=== PATIENT | male | born 1965 | race Caucasian/White ===

== ENCOUNTER 2018-03-01 16:59 | Inpatient (IN) | payer OTHER ==
[2018-03-01] MEDS ORDERED: SODIUM CHLORIDE 0.9% 1,000 ML IV STA (17:19)
[2018-03-01] MEDS ORDERED: LABETALOL 5 MG/ML VIAL MDV IVP STA (17:19)
[2018-03-01 17:55] LABS: Basophils # (A) 0.1 k/uL (0-0.2); Basophils % (A) 1 %; Eosinophils # (A) 0.2 k/uL (0-0.7); Eosinophils % (A) 2 %; HCT 45.6 % (39.0-53.0); HGB 15.8 gm/dL (13.0-17.5); Lymphocytes # (A) 2.1 k/uL (1.0-4.8); Lymphocytes % (A) 22 %; MCH 28.4 pg (25.0-35.0); MCHC 34.7 g/dL (31.0-37.0); MCV 81.8 fL (80.0-100.0); Mean Platelet Volume 7.4; Monocytes # (A) 0.4 k/uL (0-1.0); Monocytes % (A) 5 %; Neutrophils # (A) 6.6 k/uL (1.3-7.7); Neutrophils % (A) 69 %; Platelet Count 211 k/uL (150-450); RBC 5.58 m/uL (4.30-5.90); RDW 13.6 % (11.5-15.5); WBC 9.6 k/uL (3.8-10.6)
[2018-03-01 18:09] LABS: ALT 16 U/L (21-72); AST 24 U/L (17-59); Albumin 3.8 g/dL (3.5-5.0); Alkaline Phosphatase 66 U/L (38-126); Anion Gap 11 mmol/L; Blood Urea Nitrogen 13 mg/dL (9-20); Calcium 9.5 mg/dL (8.4-10.2); Carbon Dioxide 23 mmol/L (22-30); Chloride 99 mmol/L (98-107); Glucose 206 mg/dL (74-99); Partial Thromboplastin Time 22.4 sec (22.0-30.0); Potassium 5.5 mmol/L (3.5-5.1); Prothrombin Time 10.1 sec (9.0-12.0); Sodium 133 mmol/L (137-145); Total Bilirubin 0.7 mg/dL (0.2-1.3); Total Protein 6.4 g/dL (6.3-8.2)
[2018-03-01 18:24] LABS: Troponin I 0.043 ng/mL (0.000-0.034)
--- NOTE | 2018-03-01 18:25 | XR ---
EXAMINATION TYPE: XR chest 2V DATE OF EXAM: 03/01/2018 COMPARISON: NONE HISTORY: Chest pain and abnormal EKG TECHNIQUE: Frontal and lateral views of the chest are obtained. FINDINGS: There is no focal air space opacity, pleural effusion, or pneumothorax seen. The cardiac silhouette size is within normal limits. The osseous structures are intact. Minimal multilevel dege nerative changes of thoracic spine are noted. IMPRESSION: No acute cardiopulmonary process.
--- NOTE | 2018-03-01 18:29 | CT ---
EXAMINATION TYPE: CT brain wo con DATE OF EXAM: 03/01/2018 COMPARISON: NONE HISTORY: Patient complains of headache. Neurologic deficits. CT DLP: 794.2 mGycm. Automated Exposure Control for Dose Reduction was Utilized. TECHNIQUE: CT scan of the head is performed without contrast. FINDINGS: There is no acute intracranial hemorrhage, mass effect, or midline shift identified. Hypo attenuation within the left lateral shavonne may represent old lacunar injury. The linear cleft within th e right parietal lobe may represent congenital defect such as schizencephaly or old encephalomalacia from prior small branch vessel infarct as it is CSF attenuated appearing chronic. Ventricles and sulc i are within normal limits in size. The globes are intact and the visualized sinuses are clear. Mini mal calcific atheromatous changes are seen of the intracranial vasculature. IMPRESSION: 1. No acute intracranial hemorrhage, mass effect, or midline shift is seen. If clinical symptoms or n eurologic deficits persist MRI would BE recommended for further evaluation. 2. Multifocal areas of probable old injury.
[2018-03-01] MEDS ORDERED: NITROGLYCERIN SL TABS 0.4 MG TAB SUBLINGUAL PRN (20:10)
[2018-03-01] MEDS ORDERED: MORPHINE ORAL SOLN 10 MG/5 ML CUP PO PRN (20:10)
[2018-03-01] MEDS ORDERED: HEPARIN SODIUM,PORCINE 5,000 UNIT/ML 1 ML VIAL IV ONE (20:10)
--- NOTE | 2018-03-01 20:10 | ED ---
General Adult HPI - General Chief complaint: Recheck/Abnormal Lab/Rx Stated complaint: ekg change Time Seen by Provider: 03/01/18 17:19 Source: patient, EMS Mode of arrival: EMS Limitations: no limitations - History of Present Illness Initial comments: [age] years old male presents with the dizziness and lightheadedness he said he felt some pressure behind the eyes was seen in urgent care center and they noticed over the suspected some changes in the EKG the referred him to the ER on arrival his blood pressure was quite high there was greater than 200 systolic was complaining about the headache and blurred vision denies any chest pain no shortness of breath he has no history of heart disease or PE or DVT he stated he does not smoke and family history is unremarkable his mom and dad has no history of heart disease and denies abdominal pain no frequency urgency dysuria dysuria no symptoms of TIA or CVA - Related Data Home Medications Medication Instructions Recorded Confirmed Atenolol [Tenormin] 50 mg PO DAILY 03/01/18 03/01/18 guanFACINE [Tenex] 1 mg PO DAILY 03/01/18 03/01/18 Allergies Allergy/AdvReac Type Severity Reaction Status Date / Time No Known Allergies Allergy Verified 03/01/18 18:52 Review of Systems ROS Statement: Those systems with pertinent positive or pertinent negative responses have been documented in the HPI. ROS Other: All systems not noted in ROS Statement are negative. Past Medical History Past Medical History: Hypertension History of Any Multi-Drug Resistant Organisms: None Reported Past Surgical History: Tonsillectomy Past Psychological History: No Psychological Hx Reported Smoking Status: Never smoker Past Alcohol Use History: Occasional Past Drug Use History: None Reported General Exam - General Exam Comments Initial Comments: General: The patient is awake and alert, in no distress, and does not appear acutely ill. Skin: Skin is warm and dry and no rashes or lesions are noted. Eye: Pupils are equal, round and reactive to light, extra-ocular movements are intact; there is normal conjunctiva bilaterally. Ears, nose, mouth and throat: There are moist mucous membranes and no oral lesions. Neck: The neck is supple, there is no tenderness or JVD. Cardiovascular: There is a regular rate and rhythm. No murmur, rub or gallop is appreciated. Respiratory: To auscultation bilateral, no wheezing no rhonchi no distress respiratory diaz noticed Gastrointestinal: Soft, non-distended, non-tender abdomen without masses or organomegaly noted. There is no rebound or guarding present. Bowel sounds are unremarkable. Back: There is no tenderness to palpation in the midline. There is no obvious deformity. Musculoskeletal: Normal ROM, no tenderness, There is no pedal edema. There is no calf tenderness or swelling. No cords were appreciated. Neurological: CN II-XII intact, Cranial nerves III through XII are intact. There are no obvious motor or sensory deficits. Coordination appears grossly intact. Speech is normal. Psychiatric: Cooperative, appropriate mood & affect, normal judgment. Limitations: no limitations Course Vital Signs 03/01/18 03/01/18 03/01/18 17:00 17:46 18:17 Temperature 98.1 F Pulse Rate 69 69 64 Respiratory 18 18 18 Rate Blood Pressure 201/99 149/77 133/85 O2 Sat by Pulse 96 98 96 Oximetry 03/01/18 19:08 Temperature 98.1 F Pulse Rate 69 Respiratory 18 Rate Blood Pressure 130/79 O2 Sat by Pulse 96 Oximetry Labs are reviewed, there was a suspicion of ST changes in lead II, III, and F aVF, heart DrGaby hendricks on Dr. Gilliam reviewed EKG, CBC is unremarkable compress metabolic panel is unremarkable troponin is slightly elevated his blood pressure on arrival was greater than 200 after giving him some labetalol but settled down now is 135 systolic he be admitted to Dr. Rueda service cardiology be consulted concerning elevated troponin and we will go ahead and heparinize EKG Findings - EKG Comments: EKG Findings:: EKG is normal sinus rhythm ventricular rate is 64 ME interval is 154 QRS duration is 80 QT/QTc is 44/460 review of this EKG does not show any arrhythmia noticed suspected ST segment elevation in lead 2 and 3 and aVF Medical Decision Making - Lab Data Result diagrams: 03/01/18 17:44 03/01/18 17:44 Lab Results 03/01/18 03/01/18 03/01/18 Range/Units 17:44 17:44 17:44 WBC 9.6 (3.8-10.6) k/uL RBC 5.58 (4.30-5.90) m/uL Hgb 15.8 (13.0-17.5) gm/dL Hct 45.6 (39.0-53.0) % MCV 81.8 (80.0-100.0) fL MCH 28.4 (25.0-35.0) pg MCHC 34.7 (31.0-37.0) g/dL RDW 13.6 (11.5-15.5) % Plt Count 211 (150-450) k/uL Neutrophils % 69 % Lymphocytes % 22 % Monocytes % 5 % Eosinophils % 2 % Basophils % 1 % Neutrophils # 6.6 (1.3-7.7) k/uL Lymphocytes # 2.1 (1.0-4.8) k/uL Monocytes # 0.4 (0-1.0) k/uL Eosinophils # 0.2 (0-0.7) k/uL Basophils # 0.1 (0-0.2) k/uL PT (9.0-12.0) sec INR (<1.2) APTT (22.0-30.0) sec Sodium 133 L (137-145) mmol/L Potassium 5.5 H (3.5-5.1) mmol/L Chloride 99 (98-107) mmol/L Carbon Dioxide 23 (22-30) mmol/L Anion Gap 11 mmol/L BUN 13 (9-20) mg/dL Creatinine 0.80 (0.66-1.25) mg/dL Est GFR (CKD-EPI)AfAm >90 (>60 ml/min/1.73 sqM) Est GFR (CKD-EPI)NonAf >90 (>60 ml/min/1.73 sqM) Glucose 206 H (74-99) mg/dL Calcium 9.5 (8.4-10.2) mg/dL Total Bilirubin 0.7 (0.2-1.3) mg/dL AST 24 (17-59) U/L ALT 16 L (21-72) U/L Alkaline Phosphatase 66 (38-126) U/L Total Creatine Kinase 47 L (55-170) U/L CK-MB (CK-2) 1.0 (0.0-2.4) ng/mL CK-MB (CK-2) Rel Index 2.1 Troponin I 0.043 H* (0.000-0.034) ng/mL Total Protein 6.4 (6.3-8.2) g/dL Albumin 3.8 (3.5-5.0) g/dL 03/01/18 Range/Units 17:44 WBC (3.8-10.6) k/uL RBC (4.30-5.90) m/uL Hgb (13.0-17.5) gm/dL Hct (39.0-53.0) % MCV (80.0-100.0) fL MCH (25.0-35.0) pg MCHC (31.0-37.0) g/dL RDW (11.5-15.5) % Plt Count (150-450) k/uL Neutrophils % % Lymphocytes % % Monocytes % % Eosinophils % % Basophils % % Neutrophils # (1.3-7.7) k/uL Lymphocytes # (1.0-4.8) k/uL Monocytes # (0-1.0) k/uL Eosinophils # (0-0.7) k/uL Basophils # (0-0.2) k/uL PT 10.1 (9.0-12.0) sec INR 1.0 (<1.2) APTT 22.4 (22.0-30.0) sec Sodium (137-145) mmol/L Potassium (3.5-5.1) mmol/L Chloride (98-107) mmol/L Carbon Dioxide (22-30) mmol/L Anion Gap mmol/L BUN (9-20) mg/dL Creatinine (0.66-1.25) mg/dL Est GFR (CKD-EPI)AfAm (>60 ml/min/1.73 sqM) Est GFR (CKD-EPI)NonAf (>60 ml/min/1.73 sqM) Glucose (74-99) mg/dL Calcium (8.4-10.2) mg/dL Total Bilirubin (0.2-1.3) mg/dL AST (17-59) U/L ALT (21-72) U/L Alkaline Phosphatase (38-126) U/L Total Creatine Kinase (55-170) U/L CK-MB (CK-2) (0.0-2.4) ng/mL CK-MB (CK-2) Rel Index Troponin I (0.000-0.034) ng/mL Total Protein (6.3-8.2) g/dL Albumin (3.5-5.0) g/dL Critical Care Time Total Critical Care Time: 45 Critical Care Time: I think elevated blood pressure caused him a headache and blurred vision head CT is normal there is no infarct or bleed there and he had a no chest pain but his troponin is elevated that could be secondary to elevated blood pressures well, he has no prior history of ischemic heart disease very guarded and heparinize him a neurology consult Disposition Clinical Impression: Hypertension, Blurred vision, Elevated troponin Disposition: ADMITTED IP TO THIS [facility] Condition: Good Referrals: Nonstaff,Physician [Primary Care Provider] - 1-2 days
[2018-03-01] MEDS: HEPARIN SOD,PORK IN 0.45% NACL 25,000 UNIT in 0.45% NACL 1 500ML.BAG IV SCH (20:46)
[2018-03-01 22:05] VITALS: BMI 28.3
[2018-03-01] MEDS: ATORVASTATIN 40 MG TAB PO SCH (22:13)
[2018-03-01] MEDS: METOPROLOL TARTRATE 25 MG TAB PO SCH (22:13)
[2018-03-02 01:09] LABS: Troponin I 0.042 ng/mL (0.000-0.034)
[2018-03-02 06:41] LABS: Cholesterol 143 mg/dL (<200); HDL Cholesterol 41 mg/dL (40-60); LDL Cholesterol,Calculated 61 mg/dL (0-99); Triglycerides 206 mg/dL (<150)
[2018-03-02 07:00] LABS: Creatine Kinase MB 1.1 ng/mL (0.0-2.4); Troponin I 0.032 ng/mL (0.000-0.034)
[2018-03-02] MEDS: guanFACINE 1 MG TAB PO SCH (08:26)
[2018-03-02] MEDS: ATENOLOL 50 MG TAB PO SCH (08:26)
[2018-03-02] MEDS: ASPIRIN 325 MG TAB PO SCH (08:26)
[2018-03-02] MEDS: METOPROLOL TARTRATE 25 MG TAB PO SCH (08:27)
[2018-03-02] MEDS ORDERED: LISINOPRIL 10 MG TAB PO SCH ×2 (09:00→21:00)
--- NOTE | 2018-03-02 10:48 | P.CRDCN ---
History of Present Illness Consult date: 03/02/18 Chief complaint: Elevated blood pressure History of present illness: This is a pleasant 52-year-old gentleman with a past medical history significant for hypertension who presented to the hospital complaining of headache associated with dizziness and lightheadedness and blurry vision. He checked his blood pressure at home and it was more than 200 mmHg systolic. For that reason he decided to come to the emergency room. 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 The patient is not aware of any prior cardiac history. Never seen by a egg candler in the past. No diabetes or dyslipidemia, beside the high blood pressure. No coronary artery disease or any coronary artery vascularization. He does not smoke but he drinks alcohol socially. Is no family history of premature coronary artery disease. The EKG showed sinus rhythm with evidence of early repolarization. The patient underwent 3 sets of cardiac enzymes was 1 normal troponin and to slightly abnormal troponin. As a mentioned earlier he did not have any symptoms of chest pain or chest discomfort except for the mild atypical chest discomfort this payroll examiner. The pressure continues to be not well-controlled. He was on atenolol 50 mg by mouth daily which was continuous. He was also started on metoprolol in addition to atenolol. I did stop the metoprolol. Also he was started on lisinopril which I am going to increase to 20 mg daily. We'll continue monitor the blood pressure over the next few days. Past Medical History Past Medical History: Hypertension History of Any Multi-Drug Resistant Organisms: None Reported Past Surgical History: Tonsillectomy Past Anesthesia/Blood Transfusion Reactions: Unable to Obtain Past Psychological History: No Psychological Hx Reported Smoking Status: Never smoker Past Alcohol Use History: Occasional Past Drug Use History: None Reported - Past Family History Father Additional Family Medical History / Comment(s): brain tumor Mother Family Medical History: Dementia Medications and Allergies Home Medications Medication Instructions Recorded Confirmed Type Atenolol [Tenormin] 50 mg PO DAILY 03/01/18 03/01/18 History guanFACINE [Tenex] 1 mg PO DAILY 03/01/18 03/01/18 History Allergies Allergy/AdvReac Type Severity Reaction Status Date / Time No Known Allergies Allergy Verified 03/01/18 18:52 Physical Exam Vitals: Vital Signs Temp Pulse Pulse Resp BP BP Pulse Ox 03/02/18 08:00 97.0 F L 67 18 164/93 98 03/02/18 04:00 97.3 F L 68 16 143/89 97 03/01/18 23:00 97.3 F L 80 16 151/96 97 03/01/18 21:47 97.3 F L 80 16 151/96 97 03/01/18 20:57 65 150/90 93 L 03/01/18 20:29 97.9 F 71 16 171/90 96 03/01/18 19:08 98.1 F 69 18 130/79 96 03/01/18 18:17 64 18 133/85 96 03/01/18 17:46 69 18 149/77 98 03/01/18 17:00 98.1 F 69 18 201/99 96 Intake and Output 03/01/18 03/02/18 03/02/18 22:59 06:59 14:59 Intake Total 179.55 240 Output Total 0 Balance 179.55 240 Intake: Intake, IV Titration 179.55 Amount Heparin Sod,Pork in 0.45% 179.55 NaCl 25,000 unit In 0.45 % NaCl 1 500ml.bag @ 11 UNITS/KG/HR 19.95 mls/hr IV .Q24H [facility] Rx#: [id number] Oral 240 Output: Urine 0 Other: Voiding Method Toilet # Voids 1 Weight 89.4 kg 89.4 kg - Constitutional General appearance: no acute distress - Respiratory Respiratory: bilateral: CTA - Cardiovascular Rhythm: regular Heart sounds: normal: S1, S2 Results 03/01/18 17:44 03/01/18 17:44 Cardiac Enzymes 03/01/18 03/01/18 03/01/18 Range/Units 17:44 17:44 23:48 AST 24 (17-59) U/L CK-MB (CK-2) 1.0 1.0 (0.0-2.4) ng/mL Troponin I 0.043 H* 0.042 H* (0.000-0.034) ng/mL 03/02/18 Range/Units 05:51 AST (17-59) U/L CK-MB (CK-2) 1.1 (0.0-2.4) ng/mL Troponin I 0.032 (0.000-0.034) ng/mL Coagulation 03/01/18 03/02/18 Range/Units 17:44 03:00 PT 10.1 (9.0-12.0) sec APTT 22.4 30.4 H (22.0-30.0) sec Lipids 03/02/18 Range/Units 05:51 Triglycerides 206 H (<150) mg/dL Cholesterol 143 (<200) mg/dL HDL Cholesterol 41 (40-60) mg/dL CBC 03/01/18 Range/Units 17:44 WBC 9.6 (3.8-10.6) k/uL RBC 5.58 (4.30-5.90) m/uL Hgb 15.8 (13.0-17.5) gm/dL Hct 45.6 (39.0-53.0) % Plt Count 211 (150-450) k/uL Comprehensive Metabolic Panel 03/01/18 Range/Units 17:44 Sodium 133 L (137-145) mmol/L Potassium 5.5 H (3.5-5.1) mmol/L Chloride 99 (98-107) mmol/L Carbon Dioxide 23 (22-30) mmol/L BUN 13 (9-20) mg/dL Creatinine 0.80 (0.66-1.25) mg/dL Glucose 206 H (74-99) mg/dL Calcium 9.5 (8.4-10.2) mg/dL AST 24 (17-59) U/L ALT 16 L (21-72) U/L Alkaline Phosphatase 66 (38-126) U/L Total Protein 6.4 (6.3-8.2) g/dL Albumin 3.8 (3.5-5.0) g/dL Current Medications Generic Name Dose Route Start Last Admin Trade Name Freq PRN Reason Stop Dose Admin Aspirin 325 mg 03/02/18 09:00 03/02/18 08:26 Aspirin PO 325 mg DAILY [facility] Administration Atenolol 50 mg 03/02/18 09:00 03/02/18 08:26 Tenormin PO 50 mg DAILY [facility] Administration Atorvastatin Calcium 40 mg 03/01/18 21:00 03/01/18 22:13 Lipitor PO 40 mg HS [facility] Administration Guanfacine HCl 1 mg 03/02/18 09:00 03/02/18 08:26 Tenex PO 1 mg DAILY [facility] Administration Heparin Sodium/Sodium Chloride 500 mls @ 19.95 mls/hr 03/01/18 20:15 05:46 25,000 unit/ Sodium Chloride IV 14 units/kg/hr .Q24H [facility] 25.4 mls/hr Protocol Titration 11 UNITS/KG/HR Lisinopril 10 mg 03/02/18 21:00 Zestril PO BID [facility] Morphine Sulfate 12 mg 03/01/18 20:10 Morphine Oral Moira 2mg/Ml PO Q5M PRN Chest Pain Nitroglycerin 0.4 mg 03/01/18 20:10 Nitrostat SUBLINGUAL Q5M PRN Chest Pain Intake and Output 03/01/18 03/02/18 03/02/18 22:59 06:59 14:59 Intake Total 179.55 240 Output Total 0 Balance 179.55 240 Intake: Intake, IV Titration 179.55 Amount Heparin Sod,Pork in 0.45% 179.55 NaCl 25,000 unit In 0.45 % NaCl 1 500ml.bag @ 11 UNITS/KG/HR 19.95 mls/hr IV .Q24H [facility] Rx#: [id number] Oral 240 Output: Urine 0 Other: Voiding Method Toilet # Voids 1 Weight 89.4 kg 89.4 kg 03/01/18 17:44 03/01/18 17:44 Assessment and Plan Assessment: Assessment #1 hypertension emergency #2 mildly abnormal cardiac enzymes. This is likely secondary to uncontrolled hypertension but severe underlying CAD to be ruled out Plan #1 DC the metoprolol and continue atenolol #2 increase the dose of lisinopril to 10 mg by mouth twice a day #3 obtain one more set of serial cardiac enzymes to see the trend #4 obtain an echocardiogram was Doppler #5 severe underlying CAD to be ruled out once the blood pressure is better controlled. Thank you for allowing us participate in his care and we will continue following up with the patient
[2018-03-02] MEDS ORDERED: SODIUM POLYSTYRENE SULFONATE 15 GM/60 ML BOTTLE PO STA (13:00)
--- NOTE | 2018-03-02 13:00 | P.HPIM ---
History of Present Illness Is a pleasant 52-year-old man came in with complaints of from blurry vision was seen in urgent care and was sent in here after EKG was done which showed some nonspecific depot vision changes patient denied any chest pain patient denied any shortness of breath patient is found to be hypertensive with blood pressure going up to 200s patient denied any shortness of breath patient had some lightheadedness. Patient uses metoprolol at home cardio evaluated the patient troponins are being obtained which are negative so far and the recommending stress test as an outpatient and for his blood pressure patient was switched to atenolol from metoprolol, patient was started on lisinopril as well but patient' s potassium is elevated because of which Lasix will is being discontinued and patient will be started on amlodipine will also give a dose of kayexalate. He doesn't have any symptoms at this time. Review of Systems REVIEW OF SYSTEMS: CONSTITUTIONAL: No fever, no malaise, no fatigue. HEENT: No recent visual problems or hearing problems. Denied any sore throat. CARDIOVASCULAR: No chest pain, orthopnea, PND, no palpitations, no syncope. PULMONARY: No shortness of breath, no cough, no hemoptysis. GASTROINTESTINAL: No diarrhea, no nausea, no vomiting, no abdominal pain. Normoactive bowel sounds. NEUROLOGICAL: No headaches, no weakness, no numbness. HEMATOLOGICAL: Denies any bleeding or petechiae. GENITOURINARY: Denies any burning micturition, frequency, or urgency. MUSCULOSKELETAL/RHEUMATOLOGICAL: Denies any joint pain, swelling, or any muscle pain. ENDOCRINE: Denies any polyuria or polydipsia. The rest of the 14-point review of systems is negative. Past Medical History Past Medical History: Hypertension History of Any Multi-Drug Resistant Organisms: None Reported Past Surgical History: Tonsillectomy Past Anesthesia/Blood Transfusion Reactions: Unable to Obtain Past Psychological History: No Psychological Hx Reported Smoking Status: Never smoker Past Alcohol Use History: Occasional Past Drug Use History: None Reported - Past Family History Father Additional Family Medical History / Comment(s): brain tumor Mother Family Medical History: Dementia Medications and Allergies Home Medications Medication Instructions Recorded Confirmed Type Atenolol [Tenormin] 50 mg PO DAILY 03/01/18 03/01/18 History guanFACINE [Tenex] 1 mg PO DAILY 03/01/18 03/01/18 History Allergies Allergy/AdvReac Type Severity Reaction Status Date / Time No Known Allergies Allergy Verified 03/01/18 18:52 Physical Exam Vitals: Vital Signs Temp Pulse Pulse Resp BP BP Pulse Ox 03/02/18 08:00 97.0 F L 67 18 164/93 98 03/02/18 04:00 97.3 F L 68 16 143/89 97 03/01/18 23:00 97.3 F L 80 16 151/96 97 03/01/18 21:47 97.3 F L 80 16 151/96 97 03/01/18 20:57 65 150/90 93 L 03/01/18 20:29 97.9 F 71 16 171/90 96 03/01/18 19:08 98.1 F 69 18 130/79 96 03/01/18 18:17 64 18 133/85 96 03/01/18 17:46 69 18 149/77 98 03/01/18 17:00 98.1 F 69 18 201/99 96 Intake and Output 03/01/18 03/02/18 03/02/18 22:59 06:59 14:59 Intake Total 179.55 240 Output Total 0 Balance 179.55 240 Intake: Intake, IV Titration 179.55 Amount Heparin Sod,Pork in 0.45% 179.55 NaCl 25,000 unit In 0.45 % NaCl 1 500ml.bag @ 11 UNITS/KG/HR 19.95 mls/hr IV .Q24H [facility] Rx#: [id number] Oral 240 Output: Urine 0 Other: Voiding Method Toilet # Voids 1 Weight 89.4 kg 89.4 kg PHYSICAL EXAMINATION: GENERAL: The patient is alert and oriented x3, not in any acute distress. Well developed, well nourished. HEENT: Pupils are round and equally reacting to light. EOMI. No scleral icterus. No conjunctival pallor. Normocephalic, atraumatic. No pharyngeal erythema. No thyromegaly. CARDIOVASCULAR: S1 and S2 present. No murmurs, rubs, or gallops. PULMONARY: Chest is clear to auscultation, no wheezing or crackles. ABDOMEN: Soft, nontender, nondistended, normoactive bowel sounds. No palpable organomegaly. MUSCULOSKELETAL: No joint swelling or deformity. EXTREMITIES: No cyanosis, clubbing, or pedal edema. NEUROLOGICAL: Gross neurological examination did not reveal any focal deficits. SKIN: No rashes. Results CBC & Chem 7: 03/01/18 17:44 03/01/18 17:44 Labs: Abnormal Lab Results - Last 24 Hours (Table) 03/01/18 03/01/18 03/01/18 Range/Units 17:44 17:44 23:48 APTT (22.0-30.0) sec Sodium 133 L (137-145) mmol/L Potassium 5.5 H (3.5-5.1) mmol/L Glucose 206 H (74-99) mg/dL ALT 16 L (21-72) U/L Total Creatine Kinase 47 L 50 L (55-170) U/L Troponin I 0.043 H* 0.042 H* (0.000-0.034) ng/mL Triglycerides (<150) mg/dL 03/02/18 03/02/18 03/02/18 Range/Units 03:00 05:51 05:51 APTT 30.4 H (22.0-30.0) sec Sodium (137-145) mmol/L Potassium (3.5-5.1) mmol/L Glucose (74-99) mg/dL ALT (21-72) U/L Total Creatine Kinase 50 L (55-170) U/L Troponin I (0.000-0.034) ng/mL Triglycerides 206 H (<150) mg/dL 03/02/18 Range/Units 11:28 APTT 35.5 H (22.0-30.0) sec Sodium (137-145) mmol/L Potassium (3.5-5.1) mmol/L Glucose (74-99) mg/dL ALT (21-72) U/L Total Creatine Kinase (55-170) U/L Troponin I (0.000-0.034) ng/mL Triglycerides (<150) mg/dL Thrombosis Risk Factor Assmnt - Choose All That Apply Each Factor Represents 1 point: Age 41-60 years Thrombosis Risk Factor Assessment Total Risk Factor Score: 1 Thrombosis Risk Factor Assessment Level: Low Risk Assessment and Plan Plan: -Accelerated hypertension or hypertensive emergency: Blood pressure improved now and the patient will be started on amlodipine this can you lisinopril. Because of mild hyponatremia will not use diuretic therapy at this time. -History of hypertension -nonspecific ST-T wave changes and cardiology is recommending stress test as an outpatient -Elevated glucose hemoglobin A1c will be obtained. -Hyponatremia probably hypovolemic -Hyperkalemia: Patient will be given Kyexalte
[2018-03-02] MEDS ORDERED: HEPARIN SODIUM,PORCINE 5,000 UNIT/ML 1 ML VIAL IV PRN (15:45)
[2018-03-02] MEDS: amLODIPine 5 MG TAB PO SCH (16:03)
[2018-03-02 20:55] LABS: Hemoglobin A1C 7.6 % (4.0-6.0)
[2018-03-02] MEDS: ATORVASTATIN 40 MG TAB PO SCH (22:41)
[2018-03-03 05:05] LABS: Anion Gap 10 mmol/L; Blood Urea Nitrogen 10 mg/dL (9-20); Calcium 9.2 mg/dL (8.4-10.2); Carbon Dioxide 27 mmol/L (22-30); Chloride 99 mmol/L (98-107); Glucose 203 mg/dL (74-99); Potassium 4.4 mmol/L (3.5-5.1); Sodium 136 mmol/L (137-145)
[2018-03-03 07:57] VITALS: RESP 16; TEMP 97.4
[2018-03-03] MEDS: amLODIPine 5 MG TAB PO SCH (07:59)
[2018-03-03] MEDS: ASPIRIN 325 MG TAB PO SCH (07:59)
[2018-03-03] MEDS: guanFACINE 1 MG TAB PO SCH (07:59)
[2018-03-03] MEDS: ATENOLOL 50 MG TAB PO SCH (07:59)
[2018-03-03] MEDS: HEPARIN SOD,PORK IN 0.45% NACL 25,000 UNIT in 0.45% NACL 1 500ML.BAG IV SCH (09:13)
--- NOTE | 2018-03-03 09:22 | P.PN ---
Subjective Progress Note Date: 03/03/18 Principal diagnosis: Uncontrolled hypertension/hypertension emergency This is a pleasant 52-year-old gentleman with a past medical history significant for hypertension who presented to the hospital complaining of headache associated with dizziness and lightheadedness and blurry vision. He checked his blood pressure at home and it was more than 200 mmHg systolic. For that reason he decided to come to the emergency room. 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 The patient is not aware of any prior cardiac history. Never seen by a seed district sales manager in the past. No diabetes or dyslipidemia, beside the high blood pressure. No coronary artery disease or any coronary artery vascularization. The EKG showed sinus rhythm with evidence of early repolarization. The patient underwent 3 sets of cardiac enzymes was 1 normal troponin and to slightly abnormal troponin. As a mentioned earlier he did not have any symptoms of chest pain or chest discomfort except for the mild atypical chest discomfort this early childhood educator aide. On follow-up with the patient today, he is asymptomatic and denies having any chest pain or discomfort or shortness of breath. The blood pressure continues to be not well-controlled on the current medical regimen. I am going to increase the dose of Norvasc to 5 mg by mouth twice a day and also add lisinopril to the current medical regimen. We will follow-up on the echocardiogram. The patient's need to be ruled out for severe underlying coronary artery disease. Objective - Vital Signs Vital signs: Vital Signs Temp 97.4 F L 03/03/18 07:54 Pulse 71 03/03/18 08:00 Resp 16 03/03/18 08:00 BP 156/86 03/03/18 07:54 Pulse Ox 97 03/03/18 08:50 Intake & Output 03/02/18 03/03/18 03/03/18 18:59 06:59 18:59 Intake Total 978.233 240 Output Total 400 800 Balance 578.233 -800 240 Weight 90.1 kg Intake: Intake, IV Titration 258.233 Amount Heparin Sod,Pork in 0.45% 258.233 NaCl 25,000 unit In 0.45 % NaCl 1 500ml.bag @ 11 UNITS/KG/HR 19.95 mls/hr IV .Q24H [facility] Rx#: [id number] Oral 720 240 Output: Urine 400 800 Other: Voiding Method Toilet # Voids 2 - Constitutional General appearance: Present: no acute distress - Respiratory Respiratory: bilateral: CTA - Cardiovascular Rhythm: regular Heart sounds: normal: S1, S2 - Labs CBC & Chem 7: 03/01/18 17:44 03/03/18 04:19 Labs: Abnormal Lab Results - Last 24 Hours (Table) 03/02/18 03/02/18 03/03/18 Range/Units 05:51 11:28 04:19 APTT 35.5 H (22.0-30.0) sec Sodium 136 L (137-145) mmol/L Glucose 203 H (74-99) mg/dL Hemoglobin A1c 7.6 H (4.0-6.0) % 03/03/18 Range/Units 04:19 APTT 49.6 H (22.0-30.0) sec Sodium (137-145) mmol/L Glucose (74-99) mg/dL Hemoglobin A1c (4.0-6.0) % Assessment and Plan Assessment: Assessment #1 hypertension emergency #2 mildly abnormal cardiac enzymes. This is likely secondary to uncontrolled hypertension but severe underlying CAD to be ruled out Plan #1 increase the dose of Norvasc #2 add lisinopril to the current medical treatment #3 follow-up on the echocardiogram Thank you for allowing us participate in his care and we will continue following up with the patient
--- NOTE | 2018-03-03 11:30 | ECHOF ---
Referral Reason:HTN MEASUREMENTS -------- HEIGHT: 177.8 cm WEIGHT: 89.4 kg BP: 164/93 RVIDd: 3.3 cm (< 3.3) IVSd: 1.2 cm (0.6 - 1.1) LVIDd: 3.7 cm (3.9 - 5.3) LVPWd: 1.1 cm (0.6 - 1.1) IVSs: 1.6 cm LVIDs: 2.6 cm LVPWs: 1.6 cm LA Diam: 3.3 cm (2.7 - 3.8) LAESV Index (A-L): 26.53 ml/m Ao Diam: 3.3 cm (2.0 - 3.7) AV Cusp: 2.2 cm (1.5 - 2.6) MV EXCURSION: 15.184 mm (> 18.000) MV EF SLOPE: 117 mm/s (70 - 150) EPSS: 0.4 cm MV E Aaron: 1.06 m/s MV DecT: 201 ms MV A Aaron: 1.03 m/s MV E/A Ratio: 1.03 RAP: 5.00 mmHg RVSP: 20.86 mmHg FINDINGS -------- Sinus rhythm. This was a technically good study. The left ventricular size is normal. There is borderline concentric left ventricular hypertrophy. Overall left ventricular systolic function is normal with, an EF between 55 - 60 %. The right ventricle is mildly enlarged. Normal LA size by volume 22+/-6 ml/m2. The right atrium is normal in size. The aortic valve is trileaflet and appears structurally normal. Mild mitral annular calcification present. Mild tricuspid regurgitation present. Right ventricular systolic pressure is normal at < 35 mmHg. There is no pulmonic regurgitation present. The aortic root size is normal. Normal inferior vena cava with normal inspiratory collapse consistent with estimated right atrial pre ssure of 5 mmHg. There is no pericardial effusion. CONCLUSIONS -------- 1. Sinus rhythm. 2. This was a technically good study. 3. The left ventricular size is normal. 4. There is borderline concentric left ventricular hypertrophy. 5. Overall left ventricular systolic function is normal with, an EF between 55 - 60 %. 6. The right ventricle is mildly enlarged. 7. Normal LA size by volume 22+/-6 ml/m2. 8. The right atrium is normal in size. 9. The aortic valve is trileaflet and appears structurally normal. 10. Mild mitral annular calcification present. 11. Mild tricuspid regurgitation present. 12. Right ventricular systolic pressure is normal at < 35 mmHg. 13. There is no pulmonic regurgitation present. 14. The aortic root size is normal. 15. Normal inferior vena cava with normal inspiratory collapse consistent with estimated right atrial pressure of 5 mmHg. 16. There is no pericardial effusion. TOURIST CABIN KEEPER: Jazmin Morales RDCS
[2018-03-03 15:49] VITALS: BP 176/93; PULSE 68
--- NOTE | 2018-03-03 16:28 | P.DS ---
Providers Date of admission: 03/01/18 20:10 Expected date of discharge: 03/03/18 Attending physician: Masood Arroyo Consults: 03/01/18 20:10 Consult Physician Urgent Consulting Provider: Debbie Gilliam Consult Reason/Comments: Hypotension, elevated troponin Do you want consulting provider notified?: Yes Primary care physician: Physician Nonstaff Hospital Course: Final Diagnoses: -Accelerated hypertension or hypertensive emergency: Blood pressure improved now and the patient will be started on amlodipine. -History of hypertension -nonspecific ST-T wave changes and cardiology is recommending stress test as an outpatient -Diabetes mellitus, hemoglobin A1c 7.6. -Hyponatremia probably hypovolemic -Hyperlipidemia Hospital course: This Is a pleasant 52-year-old man came in with complaints of from blurry vision was seen in urgent care and was sent in here after EKG was done which showed some nonspecific ST-T wave changes patient denied any chest pain patient denied any shortness of breath patient is found to be hypertensive with blood pressure going up to 200s patient denied any shortness of breath patient had some lightheadedness. Patient uses metoprolol at home cardio evaluated the patient troponins are being obtained which are negative so far and the recommending stress test as an outpatient and for his blood pressure patient was switched to atenolol from metoprolol, patient was started on lisinopril as well but patient's potassium is elevated because of which Lasix will is being discontinued and patient will be started on amlodipine will also give a dose of kayexalate. He doesn't have any symptoms at this time. PHYSICAL EXAMINATION: GENERAL: The patient is alert and oriented x3, not in any acute distress. Well developed, well nourished. HEENT: Pupils are round and equally reacting to light. EOMI. No scleral icterus. No conjunctival pallor. Normocephalic, atraumatic. No pharyngeal erythema. No thyromegaly. CARDIOVASCULAR: S1 and S2 present. No murmurs, rubs, or gallops. PULMONARY: Chest is clear to auscultation, no wheezing or crackles. ABDOMEN: Soft, nontender, nondistended, normoactive bowel sounds. No palpable organomegaly. MUSCULOSKELETAL: No joint swelling or deformity. EXTREMITIES: No cyanosis, clubbing, or pedal edema. NEUROLOGICAL: Gross neurological examination did not reveal any focal deficits. SKIN: No rashes. Patient Condition at Discharge: Stable Plan - Discharge Summary Discharge Rx Participant: No New Discharge Prescriptions: New amLODIPine [Norvasc] 5 mg PO BID #60 tab Aspirin EC [Ecotrin Low Dose] 81 mg PO DAILY #30 tablet. Atorvastatin [Lipitor] 40 mg PO HS #30 tab metFORMIN HCL [Glucophage] 500 mg PO BID #60 tab Continue guanFACINE [Tenex] 1 mg PO DAILY Atenolol [Tenormin] 50 mg PO DAILY Discharge Medication List Atenolol [Tenormin] 50 mg PO DAILY 03/01/18 [History] guanFACINE [Tenex] 1 mg PO DAILY 03/01/18 [History] Aspirin EC [Ecotrin Low Dose] 81 mg PO DAILY #30 tablet. 03/03/18 [Rx] Atorvastatin [Lipitor] 40 mg PO HS #30 tab 03/03/18 [Rx] amLODIPine [Norvasc] 5 mg PO BID #60 tab 03/03/18 [Rx] metFORMIN HCL [Glucophage] 500 mg PO BID #60 tab 03/03/18 [Rx] Follow up Appointment(s)/Referral(s): Roro Huitron MD [REFERRING] - 1 Week (Walk in appointment, anyday after Wednesday. Must be in office by 3:30. Or, call office tomorrow to set up follow up appointment.) Rachid Gutierrez MD [STAFF PHYSICIAN] - 1 Week (Possible outpatient stress test.) Ambulatory/Diagnostic Orders: Complete Blood Count w/diff [LAB.AMB] Time Frame: 3 Days, Location: Determined By Patient Patient Instructions/Handouts: Hypertension (DC), Hyperglycemia, Non-Diabetic ( DC) Activity/Diet/Wound Care/Special Instructions: pt would like DC RX case management to assist patient with glucometer/ supplies. Diet: Cardiac, consistent carb. Accu-Cheks before meals and at bedtime, maintain log and take to follow-up visit with PCP for further recommendations Diabetic education Activity: Limited until follow up
[2018-03-03] MEDS ORDERED: amLODIPine 5 MG TAB PO SCH (21:00)
[2018-03-04] MEDS ORDERED: LISINOPRIL 10 MG TAB PO SCH (09:00)
== END 2018-03-03 17:04 | disposition home or self-care (01) | DRG 305 ==
LOC: EC 16:59 → 6SEL 20:10
PROVIDERS: ADMIT Hospitalist; ATTEND Hospitalist
DX: I16.1 Hypertensive emergency (principal); E11.65 Type 2 diabetes mellitus with hyperglycemia; E87.1 Hypo-osmolality and hyponatremia; E86.1 Hypovolemia; R74.8 Abnormal levels of other serum enzymes; E87.5 Hyperkalemia; Z79.899 Other long term (current) drug therapy; Z81.8 Family history of other mental and behavioral disorders; Z90.89 Acquired absence of other organs
CPT/HCPCS: 36415; 70450; 71046; 80048; 80053; 80061; 82550; 82553; 83036; 84484; 85025; 85610; 85730; 93005; 93306; 94760; 96361; 96374; 96375; 99291

== ENCOUNTER → 2019-10-23 | Outpatient (CLI) | payer OTHER | END | disposition home or self-care (01) | LOC: LABPAT 12:58 | PROVIDERS: ATTEND Orthopaedic Surgery | DX: Z01.812 Encounter for preprocedural laboratory examination (principal); M16.11 Unilateral primary osteoarthritis, right hip | CPT/HCPCS: 87070 ==

== ENCOUNTER 2019-10-30 05:31 | Inpatient (IN) | payer OTHER ==
[2019-10-24 14:51] VITALS: BMI 24.3
[~2019-10-30 05:31] MED LIST: TRANEXAMIC ACID 1,000 MG in SODIUM CHLORIDE 0.9% 100 ML IVPB ONE
[2019-10-30] MEDS ORDERED: LIDOCAINE 1% 20 ML VIAL (10MG/ML) FOR IV START INTRADERMA PRN (05:42)
[2019-10-30] MEDS ORDERED: HYDROmorphone 0.5 MG/0.5 ML SYRINGE IVP PRN ×3 (05:42→08:41)
[2019-10-30] MEDS ORDERED: ROPIVACAINE 246.25 MG, EPINEPHrine 0.5 MG, KETOROLAC 30 MG, cloNIDine HCL/PF 80 MCG, WA... MISCELLANE ONE ×5 (06:00)
[2019-10-30 06:05] LABS: Appearance,Urine Clear (Clear); Bilirubin,Urine Negative (Negative); Blood,Urine Negative (Negative); Color,Urine Yellow; Glucose,Urine (UA) Negative (Negative); Ketones,Urine Negative (Negative); Leukocyte Esterase,Urine Negative (Negative); Nitrite,Urine Negative (Negative); PH, Urine 5.5 (5.0-8.0); Protein,Urine Negative (Negative); Specific Gravity,Urine 1.017 (1.001-1.035); Urobilinogen,Urine <2.0 mg/dL (<2.0)
[2019-10-30] MEDS: ACETAMINOPHEN TAB 500 MG TAB PO ONE ×2 (06:16→08:47)
[2019-10-30] MEDS: MELOXICAM 7.5 MG TAB PO ONE ×2 (06:17→08:48)
[2019-10-30] MEDS: GABAPENTIN 300 MG CAP PO ONE ×2 (06:17→08:47)
[2019-10-30] MEDS: LACTATED RINGERS 1,000 ML IV SCH ×2 (06:20→06:53)
[2019-10-30 06:26] LABS: Glucose,Whole Blood 167 mg/dL (75-99)
[2019-10-30 06:45] LABS: Basophils % (A) 1 %; Eosinophils # (A) 0.2 k/uL (0-0.7); Eosinophils % (A) 3 %; HCT 44.5 % (39.0-53.0); HGB 15.6 gm/dL (13.0-17.5); Lymphocytes # (A) 2.3 k/uL (1.0-4.8); Lymphocytes % (A) 26 %; MCH 29.7 pg (25.0-35.0); MCV 84.9 fL (80.0-100.0); Mean Platelet Volume 6.4; Monocytes # (A) 0.6 k/uL (0-1.0); Monocytes % (A) 7 %; Neutrophils # (A) 5.3 k/uL (1.3-7.7); Neutrophils % (A) 62 %; Platelet Count 194 k/uL (150-450); RBC 5.24 m/uL (4.30-5.90); RDW 13.6 % (11.5-15.5); WBC 8.6 k/uL (3.8-10.6)
[2019-10-30] MEDS: ONDANSETRON 4 MG/2 ML VIAL IVP ONE ×2 (06:49→08:48)
[2019-10-30] MEDS ORDERED: SODIUM CHLORIDE 0.9% 100 ML BAG ONE (06:51)
[2019-10-30] MEDS ORDERED: MIDAZOLAM 2 MG/2 ML VIAL ONE (06:51)
[2019-10-30] MEDS ORDERED: PHENYLEPHRINE-0.9% NACL SYG 1 MG/10 ML SYRINGE ONE (06:51)
[2019-10-30] MEDS ORDERED: ePHEDrine SULFATE/0.9% NACL/PF 50 MG/5 ML SYRINGE IV ONE (06:51)
[2019-10-30] MEDS ORDERED: PROPOFOL 10 MG/ML 20 ML VIAL IV ONE (06:51)
[2019-10-30] MEDS ORDERED: LIDOCAINE 1% INJ 10MG/ML (20 ML MDV) ONE (06:51)
[2019-10-30] MEDS ORDERED: LACTATED RINGERS 1,000 ML BAG IV ONE (06:51)
[2019-10-30] MEDS ORDERED: fentaNYL (PF) 50 MCG/ML 2 ML AMP ONE (06:51)
[2019-10-30] MEDS ORDERED: HEPARIN SODIUM,PORCINE 10,000 UNIT/ML 1 ML VIAL ONE (06:51)
[2019-10-30] MEDS ORDERED: TRANEXAMIC ACID 1,000 MG/10 ML VIAL ONE (06:51)
[2019-10-30] MEDS ORDERED: SUCCINYLCHOLINE CHLORIDE 100 MG/5 ML SYR IV ONE (06:51)
[2019-10-30] MEDS ORDERED: ceFAZolin 3,000 MG in SODIUM CHLORIDE 0.9% IRRIGATIO 3,000 ML IRRIGATION ONE (06:55)
[2019-10-30] MEDS ORDERED: LACTATED RINGERS 1,000 ML IV ONE (07:46)
--- NOTE | 2019-10-30 08:23 | P.OP ---
Date of Procedure: 10/30/19 Preoperative Diagnosis: Severe osteoarthritis right hip Postoperative Diagnosis: Severe osteoarthritis right hip Procedure(s) Performed: Right total hip arthroplasty with a direct anterior approach Implants: Macdonald and nephew Polarstem size 2 standard Macdonald & Nephew R3, 3 hole acetabular shell, 52 mm Macdonald [employer] Nephew reflection 6.5 mm cancellus screw, 20 mm 2 Macdonald [employer] Nephew R3, XLPE 20 acetabular liner Macdonald & Nephew Oxinium femoral head 36 m, +4 All components were press-fit. The articulation is Oxinium on polyethylene. Anesthesia: GETA, spinal Surgeon: Matt Gutierrez Hall Supervisor #1: Elizabeth Castañeda Estimated Blood Loss (ml): 300 (124 mL returned with Cell Saver) Pathology: other (Femoral head) Condition: stable Disposition: PACU Indications for Procedure: After failure of conservative treatment we discussed the surgical and nonsurgical treatment options at length. Patient wishes to proceed with a total hip arthroplasty with a direct anterior approach. Complications specific to this procedure were discussed at length, including but not limited to infection, leg length discrepancy, dislocation, and nerve injury. Patient is aware of all these complications and informed consent was obtained Operative Findings: The operative findings are consistent with severe osteoarthritis of the right hip Description of Procedure: Patient was seen and evaluated in the preoperative area, consent was reviewed, and the surgical site was marked with a skin marker. Patient was then brought to the operating room and given prophylactic antibiotics intravenously. 1 g of Tranexamic acid was also given. A spinal anesthetic was administered by the anesthesia department. The patient was then placed on the Erlanger table with the bony prominences well-padded. The hip area was then prepped and draped in usual sterile fashion. A universal timeout was then performed, which confirmed the patient's name, surgical site, ALLERGIES, and procedure being performed. Next the incision site was located at 1 cm distal and 1 cm lateral to the anterior superior iliac spine. The skin and subcutaneous tissues were sharply incised. Incision was carefully dissected down to the fascia overlying the tensor fascia deirdre muscle. The patient then began to complain of pain at the surgical site. A general anesthetic was administered by the anesthesia department. This fascia was then incised in line with the incision. Next, using blunt finger dissection, the tensor fascia deirdre muscle was dissected off its investing fascia. The muscle was then carefully retracted laterally with a cobra retractor over the lateral neck of the femur. Next, the circumflex vessels were identified and cauterized using the AquaMantis device. The anterior hip capsule was then exposed. The capsule was then opened and an inverted T fashion. Cobra retractors were then placed intracapsularly. The proximal femur was then visualized. The femoral neck was then osteotomized appropriate level above the lesser trochanter. Small amount of traction was placed with the Erlanger table. A small wedge of bone was then removed from the remaining femoral head. Next, using a corkscrew femoral head was easily removed from the acetabulum. On gross visual inspection, the femoral head had complete loss of articular cartilage in multiple periarticular osteophytes. Attention was then turned to the acetabulum. the acetabulum was exposed and any remaining labrum was excised. Sequential reaming of the acetabulum was performed using fluoroscopic guidance. When the appropriate size was reached, a trial was then placed. The position and fit of the trial was checked with fluoroscopy. The trial was then removed. Then, using fluoroscopic guidance, the final implant was impacted at 20 of anteversion and 40 of abduction, and fully seated in the acetabulum. 2 screws were then placed in the acetabulum. Again fluoroscopy was used to check position of the screws. Next, the liner was then impacted, with a 20 elevated liner located in the anterior superior quadrant. Component locking was confirmed. Attention was then directed to the femur. With the aid of the Erlanger table, the femur was externally rotated to approximately 130, extended, and abducted under the opposite leg. A side hook was then placed under the proximal femur, and the side hook elevator was used to elevate the proximal femur. Retractors were then placed. A capsular release was performed, as well as a release of the conjoined tendon, which afforded excellent visualization of the proximal femur. Next, a box osteotome was used to lateralize the proximal femur. A deputy sheriff k9 handler was then used to locate the femoral canal. Sequential broaching was then performed with appropriate size which afforded excellent fixation in the proximal femur. A trial was then placed with appropriate head and neck, and the hip was gently reduced with the aid of the Erlanger table. Fluoroscopy was then used to check position of the components, as well as to ensure equal leg lengths. The hip was then gently dislocated and the trials were then removed. Final implants were then impacted and the hip was again reduced. Final fluoroscopic x-rays confirmed that the components were in anatomic position, as well as equal leg lengths. The hip was also taken through range of motion, and found to be stable. The hip was then copiously irrigated with antibiotic solution with pulsatile lavage. The hip was then irrigated with Irrisept solution. The soft tissues were then injected with a ropivacaine solution, which consisted of 246.25 mg of ropivacaine, 0.5 mg of epinephrine, 30 mg of Toradol, 80 g of clonidine, and 48.45 mL of sterile water, for a total of 100 mL of fluid injected. A second dose of 1 g of Tranexamic acid was also given. the fascia was then closed with 2-0 strata fix suture. The subcutaneous tissue was closed with 3-0 Vicryl. The subcuticular tissue was closed with 3-0 strata fix suture. The skin was then closed with Dermabond glue and a sterile silver dressing. The patient was then transferred to the recovery room in stable condition. The assistant store manager operations SHANNON Gonzalez was required due to the complexity of surgery, and the need for skilled surgical garment fitter for positioning, draping, exposure, retraction, and closure of the wound.
--- NOTE | 2019-10-30 08:32 | FL ---
EXAMINATION TYPE: FL guidance operating room, XR Hip Limited RT DATE OF EXAM: 10/30/2019 CLINICAL HISTORY: Right hip pain. TECHNIQUE: Fluoroscopy. COMPARISON: None. FINDINGS: Fluoroscopic guidance was provided during right hip replacement procedure performed by Dr. Gutierrez. A total of 43 seconds of fluoroscopic time was utilized during the procedure and two spot images are acquired. Images acquired show metallic hardware from right hip arthroplasty satisfactory in position on intrao perative frontal projection. IMPRESSION: As Above.
[2019-10-30] MEDS ORDERED: HYDROmorphone 1 MG/ML 1 ML SYRINGE IVP PRN (08:41)
[2019-10-30] MEDS ORDERED: hydrOXYzine PAMOATE 25 MG CAP PO PRN (08:41)
[2019-10-30] MEDS ORDERED: HYDROcodone/APAP 5-325MG 1 EACH TAB PO PRN ×2 (08:41)
[2019-10-30] MEDS ORDERED: ONDANSETRON 4 MG/2 ML VIAL IVP PRN (08:41)
[2019-10-30] MEDS ORDERED: MAGNESIUM HYDROXIDE 2,400 MG/10 ML CUP PO PRN (08:41)
[2019-10-30] MEDS ORDERED: DIAZEPAM 5 MG TAB PO PRN (08:41)
[2019-10-30] MEDS ORDERED: NALOXONE 0.4 MG/ML 1 ML VIAL IV PRN (08:41)
[2019-10-30 08:54] LABS: Glucose,Whole Blood 173 mg/dL (75-99)
--- NOTE | 2019-10-30 09:50 | XR ---
EXAMINATION TYPE: XR Hip Limited RT DATE OF EXAM: 10/30/2019 CLINICAL HISTORY: Right hip pain and osteoarthritis. TECHNIQUE: Single AP portable view of right hip is obtained immediately postoperatively. COMPARISON: None. FINDINGS: Metallic hardware from right hip arthroplasty is seen and appears satisfactory in alignment and position. Overlying blanket material is present. Gas from recent surgery noted deep to prosthesi s in the medial groin tissue. IMPRESSION: Metallic hardware from right hip arthroplasty is satisfactory in position.
[2019-10-30] MEDS: SODIUM CHLORIDE 0.9% 1,000 ML IV SCH ×2 (10:03→20:42)
[2019-10-30 11:26] LABS: Glucose,Whole Blood 203 mg/dL (75-99)
[2019-10-30] MEDS: INSULIN ASPART (NovoLOG) 100 UNIT/ML VIAL SQ SCH ×3 (12:32→21:35)
--- NOTE | 2019-10-30 13:16 | P.CONS ---
History of Present Illness - Reason for Consult Consult date: 10/30/19 Medical management - History of Present Illness Of this is a 53-year-old male patient of Dr. Ortiz with past medical history of hypertension, hyperlipidemia, diabetes mellitus type 2, osteoarthritis. Patient has been brought into the hospital under the care of Dr. Gutierrez status post right hip arthroplasty, anterior approach. Patient is postop day 0. The patient is seen in the immediate postop period. He states his pain is currently under control. No nausea or vomiting, no lightheadedness or dizziness. Review of Systems Constitutional: Denies chills, Denies fatigue, Denies fever, Denies lethargy, Denies malaise, Denies poor appetite, Denies weakness, Denies weight loss Eyes: denies blurred vision, denies pain Ears, nose, mouth and throat: Denies dysphagia, Denies headache, Denies nasal congestion, Denies nasal discharge, Denies sore throat Cardiovascular: Denies chest pain, Denies dyspnea on exertion, Denies edema, Denies irregular heart beat, Denies leg edema, Denies lightheadedness, Denies shortness of breath, Denies syncope Respiratory: Denies cough, Denies cough with sputum, Denies dyspnea, Denies hemoptysis, Denies home oxygen, Denies pleurisy, Denies wheezing Gastrointestinal: Denies abdominal pain, Denies bloating, Denies diarrhea, Denies loss of appetite, Denies nausea, Denies vomiting Genitourinary: Denies dysuria, Denies urinary retention Musculoskeletal: Denies frequent falls, Denies gait dysfunction, Denies muscle weakness, Denies myalgias Integumentary: Denies pruritus, Denies rash Neurological: Denies change in mentation, Denies change in speech, Denies gait dysfunction, Denies numbness, Denies weakness Psychiatric: Denies anxiety, Denies depression Endocrine: Denies fatigue, Denies weight change Past Medical History Past Medical History: Diabetes Mellitus, Hypertension History of Any Multi-Drug Resistant Organisms: None Reported Past Surgical History: Orthopedic Surgery, Tonsillectomy Additional Past Surgical History / Comment(s): rt wrist, right hip arthroplasty anterior approach Past Anesthesia/Blood Transfusion Reactions: No Reported Reaction Smoking Status: Never smoker Additional Past Alcohol Use History / Comment(s): Patient is a lifelong non smoker, no marijuana or illicit drug use, occasional alcohol use. He has worked as self-employed and is a volunteer vascular tech. Patient is single and does not have any children. He does not have CPAP, oxygen nebulizer at home. - Past Family History Father Additional Family Medical History / Comment(s): Father at age 66 from a brain tumor. Mother Family Medical History: Dementia Additional Family Medical History / Comment(s): Mother at age 72 from Alzheimer's. Brother(s) Additional Family Medical History / Comment(s): Patient has 3 brothers with no major medical problems. Patient does not have any sisters. Medications and Allergies Home Medications Medication Instructions Recorded Confirmed Type Atenolol [Tenormin] 50 mg PO QAM 03/01/18 10/30/19 History metFORMIN HCL [Glucophage] 500 mg PO BID #60 tab 03/03/18 10/30/19 Rx Atorvastatin [Lipitor] 10 mg PO HS 10/24/19 10/30/19 History Lisinopril [Zestril] 10 mg PO HS 10/24/19 10/30/19 History Allergies Allergy/AdvReac Type Severity Reaction Status Date / Time No Known Allergies Allergy Verified 10/30/19 06:31 Physical Exam Vitals: Vital Signs Temp Pulse Pulse Resp BP Pulse Ox 10/30/19 09:04 86 16 133/73 91 L 10/30/19 08:49 89 16 160/85 96 10/30/19 08:39 97.3 F L 101 H 16 156/80 96 10/30/19 06:40 98.4 F 67 18 146/82 96 Intake and Output 10/29/19 10/30/19 10/30/19 22:59 06:59 14:59 Intake Total 1001 450 Output Total 300 Balance 1001 150 Intake: IV 1001 450 Output: Estimated Blood Loss 300 Other: Weight 79.4 kg Gen: This is a 53-year-old male. Patient is resting in bed and appears to be comfortable and in no acute distress. HEENT: Head is atraumatic, normocephalic. Pupils equal, round. Sclerae is anicteric. NECK: Supple. No JVD. No lymphadenopathy. No thyromegaly. LUNGS: Clear to auscultation. No wheezes or rhonchi. No intercostal retractions. HEART: Regular rate and rhythm. No murmur. ABDOMEN: Soft. Bowel sounds are present. No masses. No tenderness. EXTREMITIES: No pedal edema. No calf tenderness. Dressing in place to the right hip with no breakthrough bleeding or drainage. NEUROLOGICAL: Patient is awake, alert and oriented x3. Cranial nerves 2 through 12 are grossly intact. Results CBC & Chem 7: 10/30/19 06:20 Labs: Abnormal Lab Results - Last 24 Hours (Table) 10/30/19 10/30/19 Range/Units 06:22 08:52 POC Glucose (mg/dL) 167 H 173 H (75-99) mg/dL Assessment and Plan Plan: 1. Osteoarthritis status post right hip arthroplasty, anterior approach. Con handyue current pain management, PT and OT per orthopedics. Continue incentive spirometry to reduce incidence of atelectasis and hospital-acquired pneumonia. DVT prophylaxis per orthopedics. 2. Hypertension. Patient will be resumed on lisinopril 10 mg at bedtime with parameters, atenolol 50 mg every morning. 3. Hyperlipidemia. Continue Lipitor 10 mg at bedtime. 4. Diabetes mellitus type 2. Patient will be resumed on metformin 500 mg twice daily and start NovoLog scale before meals and at bedtime. 5. DVT prophylaxis. Aspirin 325 mg twice daily. Discharge plan: most likely home Impression and plan of care have been directed as dictated by the signing physician. Reyna Olivas nurse practitioner acting as scribe for signing physician.
[2019-10-30 14:31] LABS: Glucose,Whole Blood 168 mg/dL (75-99)
[2019-10-30 16:14] LABS: Glucose,Whole Blood 159 mg/dL (75-99)
[2019-10-30] MEDS: ASPIRIN 325 MG TAB PO SCH (20:39)
[2019-10-30] MEDS: metFORMIN 500 MG TAB PO SCH (20:39)
[2019-10-30] MEDS ORDERED: ATORVASTATIN 10 MG TAB PO SCH (21:00)
[2019-10-30] MEDS ORDERED: LISINOPRIL 10 MG TAB PO SCH (21:00)
[2019-10-30] MEDS ORDERED: SENNOSIDES-DOCUSATE SODIUM 1 EACH TAB PO SCH (21:00)
[2019-10-30 21:30] LABS: Glucose,Whole Blood 177 mg/dL (75-99)
[2019-10-31] MEDS: LACTATED RINGERS 1,000 ML IV SCH (02:16)
[2019-10-31 06:25] VITALS: BP 133/80; PULSE 83; RESP 16; TEMP 98.5
[2019-10-31 07:10] LABS: Glucose,Whole Blood 168 mg/dL (75-99)
[2019-10-31] MEDS: INSULIN ASPART (NovoLOG) 100 UNIT/ML VIAL SQ SCH (07:49)
[2019-10-31 07:53] LABS: Basophils % (A) 0 %; Eosinophils # (A) 0.1 k/uL (0-0.7); Eosinophils % (A) 1 %; HCT 35.7 % (39.0-53.0); Lymphocytes # (A) 1.1 k/uL (1.0-4.8); Lymphocytes % (A) 16 %; MCH 30.1 pg (25.0-35.0); MCHC 34.7 g/dL (31.0-37.0); MCV 86.6 fL (80.0-100.0); Mean Platelet Volume 6.3; Monocytes # (A) 0.5 k/uL (0-1.0); Monocytes % (A) 7 %; Neutrophils # (A) 5.1 k/uL (1.3-7.7); Neutrophils % (A) 74 %; Platelet Count 145 k/uL (150-450); RBC 4.12 m/uL (4.30-5.90); RDW 13.8 % (11.5-15.5); WBC 6.9 k/uL (3.8-10.6)
[2019-10-31] MEDS: ASPIRIN 325 MG TAB PO SCH (07:55)
[2019-10-31] MEDS: metFORMIN 500 MG TAB PO SCH (07:55)
[2019-10-31] MEDS: SODIUM CHLORIDE 0.9% 1,000 ML IV SCH (07:57)
[2019-10-31 08:07] LABS: HGB 12.4 gm/dL (13.0-17.5)
[2019-10-31] MEDS ORDERED: ATENOLOL 50 MG TAB PO SCH (09:00)
[2019-10-31] MEDS ORDERED: MELOXICAM 7.5 MG TAB PO SCH (09:00)
--- NOTE | 2019-10-31 09:08 | P.DS ---
Providers Date of admission: 10/30/19 05:31 Expected date of discharge: 10/31/19 Attending physician: Matt Gutierrez Consults: 10/30/19 08:41 Consult Physician Routine Consulting Provider: Nicola Ortiz Consult Reason/Comments: medical management Do you want consulting provider notified?: Yes Primary care physician: Nicola Ortiz MD - Discharge Diagnosis(es) (1) Osteoarthritis of right hip Current Visit: Yes Status: Acute (2) S/P total hip arthroplasty Current Visit: Yes Status: Acute Hospital Course: This is a 53-year-old male with known history of degenerative arthritis of the right hip. The patient presents for evaluation. After discussion and consideration patient elects to proceed with total hip arthroplasty. The patient is seen preoperatively by Dr. Gutierrez and medically cleared for surgery by their primary care physician. Patient is admitted to [facility] on 10/30/2019 for total hip arthroplasty. The procedures performed without complication or sequelae. The patient is doing well postoperatively. Labs and vital signs are stable on day of discharge. On day of discharge patient's hip incision is healing well. There is minimal erythema. There is no drainage noted at this time. There is minimal soft tissue swelling to the hip and thigh. Patient has full foot and ankle motion without difficulty or pain. Calf is soft and nontender to palpation. Neurovasc ular status to the right lower extremity is intact. Patient is discharged home in good condition. Opioid start talking form is reviewed and signed at patient bedside. Please see med rec for accurate list of home medications. Plan - Discharge Summary Discharge Rx Participant: Yes New Discharge Prescriptions: New Aspirin 325 mg PO BID #60 tab HYDROcodone/APAP 5-325MG [[place] 5-325] 1 - 2 tab PO Q6HR PRN #56 tab PRN Reason: Pain Sennosides [Senokot] 1 tab PO BID #60 tablet No Action Atenolol [Tenormin] 50 mg PO QAM metFORMIN HCL [Glucophage] 500 mg PO BID #60 tab Lisinopril [Zestril] 10 mg PO HS Atorvastatin [Lipitor] 10 mg PO HS Discharge Medication List Atenolol [Tenormin] 50 mg PO QAM 03/01/18 [History] metFORMIN HCL [Glucophage] 500 mg PO BID #60 tab 03/03/18 [Rx] Atorvastatin [Lipitor] 10 mg PO HS 10/24/19 [History] Lisinopril [Zestril] 10 mg PO HS 10/24/19 [History] Aspirin 325 mg PO BID #60 tab 10/31/19 [Rx] HYDROcodone/APAP 5-325MG [[place] 5-325] 1 - 2 tab PO Q6HR PRN #56 tab 10/31/19 [Rx] Sennosides [Senokot] 1 tab PO BID #60 tablet 10/31/19 [Rx] Follow up Appointment(s)/Referral(s): Matt Gutierrez DO [Doctor of Osteopathic Medicine] - 2 Weeks Activity/Diet/Wound Care/Special Instructions: Weightbearing as tolerated with walker. Leave dressing intact. Dressing may be removed by home care nurse or by patient in 10 days. May shower with dressing on. Recommend use of compression stockings daily for at least 2 weeks during the day to help prevent swelling and blood clots. May remove at night before sleeping. Please follow-up with [facility] in 2 weeks and call with any questions or concerns, . Discharge Disposition: HOME WITH HOME HEALTH SERVICES
[2019-10-31 11:36] LABS: Glucose,Whole Blood 193 mg/dL (75-99)
== END 2019-10-31 11:37 | disposition home health service (06) | DRG 470 ==
LOC: 2ORMAIN 05:31 → 4SSUR 08:46
PROVIDERS: ADMIT Orthopaedic Surgery; ATTEND Orthopaedic Surgery
PROC: 0SR906A Replacement of Right Hip Joint with Oxidized Zirconium on Polyethylene Synthetic Substitute, Uncemented, Open Approach (ICD-10-PCS; principal; 2019-10-30 07:00)
DX: M16.11 Unilateral primary osteoarthritis, right hip (principal); I10 Essential (primary) hypertension; E78.5 Hyperlipidemia, unspecified; E11.9 Type 2 diabetes mellitus without complications; Z79.84 Long term (current) use of oral hypoglycemic drugs; Z79.899 Other long term (current) drug therapy; Z82.0 Family history of epilepsy and other diseases of the nervous system
CPT/HCPCS: 73501; 81003; 85025; 86850; 86891; 86900; 86901; 88300

== ENCOUNTER 2019-12-08 21:38 | Emergency (ER) | payer OTHER ==
[2019-12-08] MEDS ORDERED: SODIUM CHLORIDE 0.9% 1,000 ML IV STA (22:15)
[2019-12-08] MEDS ORDERED: MAG HYDROX/AL HYDROX/SIMETH 30 ML, HYOSCYAMINE ELIXIR 10 ML, LIDOCAINE VISCOUS 2% 10 ML PO STA ×3 (22:16)
[2019-12-08 22:56] VITALS: RESP 18
[2019-12-08 23:16] LABS: Appearance,Urine Clear (Clear); Bilirubin,Urine Negative (Negative); Blood,Urine Negative (Negative); Color,Urine Yellow; Glucose,Urine (UA) Negative (Negative); Ketones,Urine Trace (Negative); Leukocyte Esterase,Urine Negative (Negative); Nitrite,Urine Negative (Negative); PH, Urine 5.5 (5.0-8.0); Protein,Urine Trace (Negative); Specific Gravity,Urine 1.037 (1.001-1.035)
[2019-12-08 23:16] LABS: Basophils # (A) 0.1 k/uL (0-0.2); Basophils % (A) 1 %; Eosinophils # (A) 0.7 k/uL (0-0.7); Eosinophils % (A) 7 %; HCT 46.9 % (39.0-53.0); Lymphocytes # (A) 1.1 k/uL (1.0-4.8); Lymphocytes % (A) 11 %; MCH 28.1 pg (25.0-35.0); MCV 85.2 fL (80.0-100.0); Mean Platelet Volume 7.7; Monocytes # (A) 0.4 k/uL (0-1.0); Monocytes % (A) 4 %; Neutrophils # (A) 8.1 k/uL (1.3-7.7); Neutrophils % (A) 77 %; Platelet Count 202 k/uL (150-450); RBC 5.51 m/uL (4.30-5.90); RDW 13.4 % (11.5-15.5); WBC 10.6 k/uL (3.8-10.6)
[2019-12-08 23:17] LABS: HGB 15.5 gm/dL (13.0-17.5)
[2019-12-08 23:26] LABS: ALT 7 U/L (4-49); AST 19 U/L (17-59); African American GFR (CKD) >90 (>60 ml/min/1.73 sqM); Albumin 3.5 g/dL (3.5-5.0); Alkaline Phosphatase 59 U/L (38-126); Anion Gap 11 mmol/L; Blood Urea Nitrogen 28 mg/dL (9-20); Calcium 9.2 mg/dL (8.4-10.2); Carbon Dioxide 23 mmol/L (22-30); Chloride 102 mmol/L (98-107); Glucose 156 mg/dL (74-99); Non-African American GFR(CKD) >90 (>60 ml/min/1.73 sqM); Potassium 4.3 mmol/L (3.5-5.1); Sodium 136 mmol/L (137-145); Total Bilirubin 0.8 mg/dL (0.2-1.3)
--- NOTE | 2019-12-09 00:08 | ED ---
General Adult HPI - General Chief complaint: Abdominal Pain Stated complaint: Abd pain Time Seen by Provider: 12/08/19 22:03 Source: patient, RN notes reviewed, old records reviewed Mode of arrival: ambulatory Limitations: no limitations - History of Present Illness Initial comments: 54-year-old male patient passed history of type 2 diabetes, hypertension, hyperlipidemia presents to ED with chief complaint of abdominal pain. Patient reports that last 3 days he has had abdominal pain. Patient reports that his pain is his right lower quadrant region. Also reports that he has had some mild epigastric pain. Also reports some mild lower back pain. Denies pain radiating to the back. It has any nausea vomiting or diarrhea. Reports her bowel movemen ts are at baseline. Does report that is having similar symptoms. Patient did have a total hip replacement on 11/01. Denies any other complaints at this time. Systemic: Pt denies fatigue, fever/chills, rash. Pt denies weakness, night sweats, weight loss. Neuro: Pt denies headache, visual disturbances, syncope or pre-syncope. HEENT: Pt denies ocular discharge or irritation, otalgia, rhinorrhea, pharyngitis or notable lymphadenopathy. Cardiopulmonary: Pt denies chest pain, SOB, heart palpitations, dyspnea on exertion. Abdominal/GI: Pt denies abdominal pain, n/v/d. : Pt denies dysuria, burning w/ urination, frequency/urgency. Denies new onset urinary or bowel incontinence. MSK: Pt denies myalgia, loss of strength or function in extremities. Neuro: Pt denies new onset weakness, paresthesias. - Related Data Home Medications Medication Instructions Recorded Confirmed Atenolol [Tenormin] 50 mg PO QAM 03/01/18 10/30/19 Atorvastatin [Lipitor] 10 mg PO HS 10/24/19 10/30/19 Lisinopril [Zestril] 10 mg PO HS 10/24/19 10/30/19 Previous Rx's Medication Instructions Recorded metFORMIN HCL [Glucophage] 500 mg PO BID #60 tab 03/03/18 Aspirin 325 mg PO BID #60 tab 10/31/19 HYDROcodone/APAP 5-325MG [[place] 1 - 2 tab PO Q6HR PRN #56 tab 10/31/19 5-325] Sennosides [Senokot] 1 tab PO BID #60 tablet 10/31/19 Pantoprazole Sodium [Protonix] 20 mg PO Q24HR 14 Days #14 12/09/19 tablet. Allergies Allergy/AdvReac Type Severity Reaction Status Date / Time No Known Allergies Allergy Verified 12/08/19 21:43 Review of Systems ROS Statement: Those systems with pertinent positive or pertinent negative responses have been documented in the HPI. ROS Other: All systems not noted in ROS Statement are negative. Past Medical History Past Medical History: Diabetes Mellitus, Hyperlipidemia, Hypertension History of Any Multi-Drug Resistant Organisms: None Reported Past Surgical History: Orthopedic Surgery, Tonsillectomy Additional Past Surgical History / Comment(s): rt wrist, right hip arthroplasty anterior approach Past Anesthesia/Blood Transfusion Reactions: No Reported Reaction Past Psychological History: No Psychological Hx Reported Smoking Status: Never smoker Past Alcohol Use History: Rare Past Drug Use History: None Reported - Past Family History Father Additional Family Medical History / Comment(s): Father at age 66 from a brain tumor. Mother Family Medical History: Dementia Additional Family Medical History / Comment(s): Mother at age 72 from Alzheimer's. Brother(s) Additional Family Medical History / Comment(s): Patient has 3 brothers with no major medical problems. Patient does not have any sisters. General Exam - General Exam Comments Initial Comments: Constitutional: NAD, AOX3, Pt has pleasant affect. HEENT: NC/AT, trachea midline, neck supple, no lymphadenopathy. Posterior pharyn x non erythematous, without exudates. External ears appear normal, without discharge. Mucous membranes moist. Eyes PERRLA, EOM intact. There is no scleral icterus. No pallor noted. Cardiopulmonary: RRR, no murmurs, rubs or gallops, no JVD noted. Lungs CTAB in anterior and posterior humphrey. No peripheral edema. Abdominal exam: Abdomen soft and non-distended. Abdomen mildly tender in right lower quadrant region, mildly tender in epigastric region.. Bowel sounds active in LLQ. No hepatosplenomegaly. No ecchymosis Neuro: CN II-XII grossly intact. No nuchal rigidity. No raccon eyes, no hardy sign, no hemotympanum. No cervical spinal tenderness. MSK: Incision sites from hip replacement are clean and dry, no erythema or signs of infection. No posterior calf tenderness bilaterally, homans sign negative bilaterally. Posterior tibialis and radial pulse +2 bilaterally. Sensation intact in upper and lower extremities. Full active ROM in upper and lower extremities, 5/5 stregnth. Limitations: no limitations Course Vital Signs 12/08/19 12/08/19 12/09/19 21:40 22:55 00:17 Temperature 97.8 F 98.1 F Pulse Rate 75 77 75 Respiratory 16 18 18 Rate Blood Pressure 108/80 106/76 142/84 O2 Sat by Pulse 98 98 96 Oximetry Medical Decision Making - Medical Decision Making 54-year-old male patient passed history of type 2 diabetes, hypertension, hyperlipidemia presents to ED with chief complaint of abdominal pain. Patient reports that last 3 days he has had abdominal pain. Patient reports that his pain is his right lower quadrant region. Also reports that he has had some mild epigastric pain. Also reports some mild lower back pain. Denies pain radiating to the back. It has any nausea vomiting or diarrhea. Reports her bowel movements are at baseline. Does report that is having similar symptoms. Patient did have a total hip replacement on 11/01. Denies any other complaints at this time. Patient will signs stable, afebrile. Physical exam displayed: Abdomen soft and non-distended. Abdomen mildly tender in right lower quadrant region, mildly tender in epigastric region.. Bowel sounds active in LLQ. No hepatosplenomegaly. No ecchymosis. Laboratory investigations overall unimpressive. Trace protein in urine. EKG nonischemic. CT of the pelvis displayed no signs acute abdomen and pelvis. Normal appendix. Mild spinal changes in lumbar spine. Mild os arthritis left hip joint. There will cortical thinning left kidney cyst with scarring possible chronic pyelonephritis. No dysuria or signs of urinary tract infection at this time. Patient with expressing gastritis-like syndrome. Patient's symptoms greatly improved with GI cocktail. Patient discharged Protonix as well as neurology and GI consult. Case discussed with Dr. Mata. - Lab Data Result diagrams: 12/08/19 22:51 12/08/19 22:51 Lab Results 12/08/19 12/08/19 12/08/19 Range/Units 22:51 22:51 22:51 WBC 10.6 (3.8-10.6) k/uL RBC 5.51 (4.30-5.90) m/uL Hgb 15.5 D (13.0-17.5) gm/dL Hct 46.9 (39.0-53.0) % MCV 85.2 (80.0-100.0) fL MCH 28.1 (25.0-35.0) pg MCHC 33.0 (31.0-37.0) g/dL RDW 13.4 (11.5-15.5) % Plt Count 202 (150-450) k/uL Neutrophils % 77 % Lymphocytes % 11 % Monocytes % 4 % Eosinophils % 7 % Basophils % 1 % Neutrophils # 8.1 H (1.3-7.7) k/uL Lymphocytes # 1.1 (1.0-4.8) k/uL Monocytes # 0.4 (0-1.0) k/uL Eosinophils # 0.7 (0-0.7) k/uL Basophils # 0.1 (0-0.2) k/uL Sodium 136 L (137-145) mmol/L Potassium 4.3 (3.5-5.1) mmol/L Chloride 102 (98-107) mmol/L Carbon Dioxide 23 (22-30) mmol/L Anion Gap 11 mmol/L BUN 28 H (9-20) mg/dL Creatinine 0.82 (0.66-1.25) mg/dL Est GFR (CKD-EPI)AfAm >90 (>60 ml/min/1.73 sqM) Est GFR (CKD-EPI)NonAf >90 (>60 ml/min/1.73 sqM) Glucose 156 H (74-99) mg/dL Plasma Lactic Acid William (0.7-2.0) mmol/L Calcium 9.2 (8.4-10.2) mg/dL Total Bilirubin 0.8 (0.2-1.3) mg/dL AST 19 (17-59) U/L ALT 7 (4-49) U/L Alkaline Phosphatase 59 (38-126) U/L Troponin I 0.012 (0.000-0.034) ng/mL Total Protein 6.0 L (6.3-8.2) g/dL Albumin 3.5 (3.5-5.0) g/dL Lipase 104 (23-300) U/L Urine Color Urine Appearance (Clear) Urine pH (5.0-8.0) Ur Specific [place] (1.001-1.035) Urine Protein (Negative) Urine Glucose (UA) (Negative) Urine Ketones (Negative) Urine Blood (Negative) Urine Nitrite (Negative) Urine Bilirubin (Negative) Urine Urobilinogen (<2.0) mg/dL Ur Leukocyte Esterase (Negative) 12/08/19 12/08/19 Range/Units 22:51 22:53 WBC (3.8-10.6) k/uL RBC (4.30-5.90) m/uL Hgb (13.0-17.5) gm/dL Hct (39.0-53.0) % MCV (80.0-100.0) fL MCH (25.0-35.0) pg MCHC (31.0-37.0) g/dL RDW (11.5-15.5) % Plt Count (150-450) k/uL Neutrophils % % Lymphocytes % % Monocytes % % Eosinophils % % Basophils % % Neutrophils # (1.3-7.7) k/uL Lymphocytes # (1.0-4.8) k/uL Monocytes # (0-1.0) k/uL Eosinophils # (0-0.7) k/uL Basophils # (0-0.2) k/uL Sodium (137-145) mmol/L Potassium (3.5-5.1) mmol/L Chloride (98-107) mmol/L Carbon Dioxide (22-30) mmol/L Anion Gap mmol/L BUN (9-20) mg/dL Creatinine (0.66-1.25) mg/dL Est GFR (CKD-EPI)AfAm (>60 ml/min/1.73 sqM) Est GFR (CKD-EPI)NonAf (>60 ml/min/1.73 sqM) Glucose (74-99) mg/dL Plasma Lactic Acid William 1.6 (0.7-2.0) mmol/L Calcium (8.4-10.2) mg/dL Total Bilirubin (0.2-1.3) mg/dL AST (17-59) U/L ALT (4-49) U/L Alkaline Phosphatase (38-126) U/L Troponin I (0.000-0.034) ng/mL Total Protein (6.3-8.2) g/dL Albumin (3.5-5.0) g/dL Lipase (23-300) U/L Urine Color Yellow Urine Appearance Clear (Clear) Urine pH 5.5 (5.0-8.0) Ur Specific [place] 1.037 H (1.001-1.035) Urine Protein Trace H (Negative) Urine Glucose (UA) Negative (Negative) Urine Ketones Trace H (Negative) Urine Blood Negative (Negative) Urine Nitrite Negative (Negative) Urine Bilirubin Negative (Negative) Urine Urobilinogen 2.0 (<2.0) mg/dL Ur Leukocyte Esterase Negative (Negative) - EKG Data -: EKG Interpreted by Me (and Dr. Mata) EKG Comments: Ventricular rate 85, NM interval 124, QRS 80, QT/QTC 364/433. On since rhythm, normal EKG. No concern for acute ischemia. Disposition Clinical Impression: Abdominal pain, Gastritis Disposition: HOME SELF-CARE Condition: Stable Instructions (If sedation given, give patient instructions): Abdominal Pain (ED), Gastritis (ED) Additional Instructions: Follow-up with primary care provider, veterinary technologist and GI consult outpatient basis tomorrow. Return to ER if condition worsens in any way. Prescriptions: Pantoprazole Sodium [Protonix] 20 mg PO Q24HR 14 Days #14 tablet.dr Is patient prescribed a controlled substance at d/c from ED?: No Referrals: Nicola Ortiz MD [Primary Care Provider] - 1-2 days Elza Ruff MD [STAFF PHYSICIAN] - 1-2 days Tevin Gloria DO [STAFF PHYSICIAN] - 1-2 days
--- NOTE | 2019-12-09 00:12 | CT ---
EXAMINATION TYPE: CT abdomen pelvis w con DATE OF EXAM: 12/09/2019 COMPARISON: None HISTORY: RLQ ABD PAIN CT DLP: 1132.40 mGycm Automated exposure control for dose reduction was used. CONTRAST: Performed with IV Contrast, patient injected with 100 mL of Isovue 300. Multiple axial sections were obtained from the diaphragm to the floor the pelvis with intravenous con trast. Lung bases are clear. There is no pleural effusion. Heart size is normal. Liver and spleen appear normal. Bile ducts are not dilated. Pancreas appears normal. There is no panc reatic mass. Gallbladder appears normal. The stomach is intact. There is no adrenal mass. Kidneys show satisfactory contrast opacification. There is small left kidne y with cortical thinning. Cortical thinning is variable and could relate to old pyelonephritis. There is no retroperitoneal adenopathy. Ureters are not dilated. Bladder distends smoothly. There is right hip prosthesis. There is no free fluid in the pelvis. There is no inguinal hernia. There is no mesenteric edema. There is no ascites or free air. Appendix appea rs normal. There is no evidence of a bowel obstruction. Lumbar vertebra have fairly normal alignment. I see no bony destructive process. There is no compress ion fracture. Bony pelvis is intact. There is some left-sided acetabular spurring and subchondral cys tic change. IMPRESSION: No sign of acute abdomen and pelvis. Normal appendix. Mild spondylotic changes in the lumbar spine. M ild osteoarthritis left hip joint. Variable cortical thinning left kidney consistent with scarring and possible chronic pyelonephritis.
[2019-12-09 00:18] VITALS: BP 142/84; PULSE 75; TEMP 98.1
--- NOTE | 2019-12-09 00:54 | ED ---
Medical Decision Making - Lab Data Result diagrams: 12/08/19 22:51 12/08/19 22:51 Lab Results 12/08/19 12/08/19 12/08/19 Range/Units 22:51 22:51 22:51 WBC 10.6 (3.8-10.6) k/uL RBC 5.51 (4.30-5.90) m/uL Hgb 15.5 D (13.0-17.5) gm/dL Hct 46.9 (39.0-53.0) % MCV 85.2 (80.0-100.0) fL MCH 28.1 (25.0-35.0) pg MCHC 33.0 (31.0-37.0) g/dL RDW 13.4 (11.5-15.5) % Plt Count 202 (150-450) k/uL Neutrophils % 77 % Lymphocytes % 11 % Monocytes % 4 % Eosinophils % 7 % Basophils % 1 % Neutrophils # 8.1 H (1.3-7.7) k/uL Lymphocytes # 1.1 (1.0-4.8) k/uL Monocytes # 0.4 (0-1.0) k/uL Eosinophils # 0.7 (0-0.7) k/uL Basophils # 0.1 (0-0.2) k/uL Sodium 136 L (137-145) mmol/L Potassium 4.3 (3.5-5.1) mmol/L Chloride 102 (98-107) mmol/L Carbon Dioxide 23 (22-30) mmol/L Anion Gap 11 mmol/L BUN 28 H (9-20) mg/dL Creatinine 0.82 (0.66-1.25) mg/dL Est GFR (CKD-EPI)AfAm >90 (>60 ml/min/1.73 sqM) Est GFR (CKD-EPI)NonAf >90 (>60 ml/min/1.73 sqM) Glucose 156 H (74-99) mg/dL Plasma Lactic Acid William (0.7-2.0) mmol/L Calcium 9.2 (8.4-10.2) mg/dL Total Bilirubin 0.8 (0.2-1.3) mg/dL AST 19 (17-59) U/L ALT 7 (4-49) U/L Alkaline Phosphatase 59 (38-126) U/L Troponin I 0.012 (0.000-0.034) ng/mL Total Protein 6.0 L (6.3-8.2) g/dL Albumin 3.5 (3.5-5.0) g/dL Lipase 104 (23-300) U/L Urine Color Urine Appearance (Clear) Urine pH (5.0-8.0) Ur Specific [place] (1.001-1.035) Urine Protein (Negative) Urine Glucose (UA) (Negative) Urine Ketones (Negative) Urine Blood (Negative) Urine Nitrite (Negative) Urine Bilirubin (Negative) Urine Urobilinogen (<2.0) mg/dL Ur Leukocyte Esterase (Negative) 12/08/19 12/08/19 Range/Units 22:51 22:53 WBC (3.8-10.6) k/uL RBC (4.30-5.90) m/uL Hgb (13.0-17.5) gm/dL Hct (39.0-53.0) % MCV (80.0-100.0) fL MCH (25.0-35.0) pg MCHC (31.0-37.0) g/dL RDW (11.5-15.5) % Plt Count (150-450) k/uL Neutrophils % % Lymphocytes % % Monocytes % % Eosinophils % % Basophils % % Neutrophils # (1.3-7.7) k/uL Lymphocytes # (1.0-4.8) k/uL Monocytes # (0-1.0) k/uL Eosinophils # (0-0.7) k/uL Basophils # (0-0.2) k/uL Sodium (137-145) mmol/L Potassium (3.5-5.1) mmol/L Chloride (98-107) mmol/L Carbon Dioxide (22-30) mmol/L Anion Gap mmol/L BUN (9-20) mg/dL Creatinine (0.66-1.25) mg/dL Est GFR (CKD-EPI)AfAm (>60 ml/min/1.73 sqM) Est GFR (CKD-EPI)NonAf (>60 ml/min/1.73 sqM) Glucose (74-99) mg/dL Plasma Lactic Acid William 1.6 (0.7-2.0) mmol/L Calcium (8.4-10.2) mg/dL Total Bilirubin (0.2-1.3) mg/dL AST (17-59) U/L ALT (4-49) U/L Alkaline Phosphatase (38-126) U/L Troponin I (0.000-0.034) ng/mL Total Protein (6.3-8.2) g/dL Albumin (3.5-5.0) g/dL Lipase (23-300) U/L Urine Color Yellow Urine Appearance Clear (Clear) Urine pH 5.5 (5.0-8.0) Ur Specific [place] 1.037 H (1.001-1.035) Urine Protein Trace H (Negative) Urine Glucose (UA) Negative (Negative) Urine Ketones Trace H (Negative) Urine Blood Negative (Negative) Urine Nitrite Negative (Negative) Urine Bilirubin Negative (Negative) Urine Urobilinogen 2.0 (<2.0) mg/dL Ur Leukocyte Esterase Negative (Negative) - EKG Data -: EKG Interpreted by Me (and Dr. Mata) EKG Comments: Ventricular rate 70, WA interval 172, QRS 80, QT/QTc is 364/393. Normal sensation, normal EKG, no concern for acute ischemia. previous EKG dictation was on incorrect EKG. Disposition Clinical Impression: Abdominal pain, Gastritis Disposition: HOME SELF-CARE Condition: Stable Instructions (If sedation given, give patient instructions): Gastritis (ED), Abdominal Pain (ED) Additional Instructions: Follow-up with primary care provider, poultry process worker and GI consult outpatient basis tomorrow. Return to ER if condition worsens in any way. Prescriptions: Pantoprazole Sodium [Protonix] 20 mg PO Q24HR 14 Days #14 tablet.dr Is patient prescribed a controlled substance at d/c from ED?: No Referrals: Nicola Ortiz MD [Primary Care Provider] - 1-2 days Elza Ruff MD [STAFF PHYSICIAN] - 1-2 days Tevin Gloria DO [STAFF PHYSICIAN] - 1-2 days
== END 2019-12-09 00:48 | disposition home or self-care (01) ==
LOC: EC 21:38
DX: K29.70 Gastritis, unspecified, without bleeding (principal); M16.12 Unilateral primary osteoarthritis, left hip; N28.1 Cyst of kidney, acquired; M54.5 Low back pain; E78.5 Hyperlipidemia, unspecified; I10 Essential (primary) hypertension; Z96.641 Presence of right artificial hip joint; Z79.899 Other long term (current) drug therapy
CPT/HCPCS: 36415; 93005; 80053; 83605; 83690; 84484; 85025; 81003; 74177; 99285; 96360; Q9967

== ENCOUNTER 2022-03-14 06:45 | Inpatient (IN) | payer BC, OTHER ==
[2022-03-14] MEDS ORDERED: HYDROmorphone 0.5 MG/0.5 ML SYRINGE IVP STA ×2 (07:14→09:03)
[2022-03-14] MEDS ORDERED: ONDANSETRON 4 MG/2 ML VIAL IVP STA (07:14)
[2022-03-14] MEDS ORDERED: SODIUM CHLORIDE 0.9% 2,000 ML IV STA (07:14)
[2022-03-14 07:51] LABS: Appearance,Urine Clear (Clear); Bilirubin,Urine Negative (Negative); Blood,Urine Negative (Negative); Color,Urine Yellow; Glucose,Urine (UA) 1+ (Negative); Ketones,Urine Trace (Negative); Leukocyte Esterase,Urine Negative (Negative); Nitrite,Urine Negative (Negative); PH, Urine 5.5 (5.0-8.0); Protein,Urine Trace (Negative); Specific Gravity,Urine 1.034 (1.001-1.035); Urobilinogen,Urine <2.0 mg/dL (<2.0)
[2022-03-14 07:57] LABS: Albumin 4.3 g/dL (3.5-5.0); Calcium 9.4 mg/dL (8.4-10.2); Potassium 4.8 mmol/L (3.5-5.1); Total Bilirubin 0.8 mg/dL (0.2-1.3); Total Protein 7.2 g/dL (6.3-8.2)
[2022-03-14 08:28] LABS: Basophils % (A) 0 %; Eosinophils % (A) 0 %; HCT 51.3 % (39.0-53.0); HGB 17.4 gm/dL (13.0-17.5); Lymphocytes % (A) 9 %; MCH 29.3 pg (25.0-35.0); MCHC 33.9 g/dL (31.0-37.0); MCV 86.4 fL (80.0-100.0); Mean Platelet Volume 8.3; Monocytes # (A) 0.4 k/uL (0-1.0); Monocytes % (A) 4 %; Neutrophils # (A) 9.5 k/uL (1.3-7.7); Neutrophils % (A) 86 %; Platelet Count 241 k/uL (150-450); RBC 5.94 m/uL (4.30-5.90); WBC 11.1 k/uL (3.8-10.6)
[2022-03-14] MEDS ORDERED: METOCLOPRAMIDE 5 MG/ML 2 ML VIAL IVP STA (08:31)
--- NOTE | 2022-03-14 08:39 | CT ---
EXAMINATION TYPE: CT abdomen pelvis w con DATE OF EXAM: 03/14/2022 COMPARISON: 12/08/2019 HISTORY: Abdominal pain CT DLP: 864.6 mGycm CONTRAST: CT scan of the abdomen and pelvis is performed without Oral Contrast and with IV Contrast, patient in jected with 100 ml mL of Isovue 300. FINDINGS: LUNG BASES-: No visible nodule. No infiltrate. LIVER/GB: No calcified gallstones. No space occupying hepatic lesion. Biliary tree is of normal ca liber. PANCREAS: No inflammation. No distinct mass. SPLEEN: No splenic enlargement. No lesion seen. ADRENALS: No nodule. No thickening. KIDNEYS/BLADDER: . Large bowel is of normal caliber. Mild atrophic change left kidney. No hydronephro sis. No nephrolithiasis. No distinct renal mass. Urinary bladder grossly unremarkable. BOWEL: There is gastric dilatation noted with wall thickening suggested in the region of the pylorus. Underlying mass with gastric outlet obstruction difficult to exclude. Direct visualization is advise d. Mild fluid distention distal small bowel GENITAL ORGANS: No gross abnormality. LYMPH NODES: No greater than 1cm abdominal or pelvic lymph nodes are appreciated. AORTA: No significant abnormality. OSSEOUS STRUCTURES: Right hip prosthesis. Degenerative changes lumbar spine. OTHER: No significant additional abnormality is seen. IMPRESSION: 1. There is gastric dilatation noted with wall thickening suggested in the region of the pylorus. Und erlying mass with gastric outlet obstruction difficult to exclude (image 21 of 112 series 201). Direc t visualization is advised.
[2022-03-14] MEDS ORDERED: NALOXONE 0.4 MG/ML 1 ML VIAL IV PRN (09:32)
[2022-03-14] MEDS ORDERED: ONDANSETRON 4 MG/2 ML VIAL IVP PRN (09:32)
--- NOTE | 2022-03-14 09:32 | ED ---
Abdominal Pain HPI - General Chief Complaint: Abdominal Pain Stated Complaint: Abd Pain Time Seen by Provider: 03/14/22 06:55 Source: patient, RN notes reviewed Mode of arrival: ambulatory Limitations: no limitations - History of Present Illness Initial Comments: 56-year-old male presents emergency Department with chief complaint of abdominal pain. Patient states started overnight. Patient states he feels nauseated did just have 1 episode of vomiting. Patient states that he had a bowel movement which initially that was causing the issue did not help her symptoms. He's had no prior abdominal surgeries. He occasionally has some reflux. He does have some discomfort into his back as any chest pain or shortness of breath. Does have history of hypertension and hyperlipidemia. - Related Data Home Medications Medication Instructions Recorded Confirmed atenoloL [Tenormin] 50 mg PO QAM 03/01/18 10/30/19 Atorvastatin [Lipitor] 10 mg PO HS 10/24/19 10/30/19 lisinopriL [Zestril] 10 mg PO HS 10/24/19 10/30/19 Previous Rx's Medication Instructions Recorded metFORMIN HCL [Glucophage] 500 mg PO BID #60 tab 03/03/18 Aspirin 325 mg PO BID #60 tab 10/31/19 HYDROcodone/APAP 5-325MG [[place] 1 - 2 tab PO Q6HR PRN #56 tab 10/31/19 5-325] Sennosides [Senokot] 1 tab PO BID #60 tablet 10/31/19 Pantoprazole Sodium [Protonix] 20 mg PO Q24HR 14 Days #14 12/09/19 tablet. Allergies Allergy/AdvReac Type Severity Reaction Status Date / Time No Known Allergies Allergy Verified 03/14/22 06:48 Review of Systems ROS Statement: Those systems with pertinent positive or pertinent negative responses have been documented in the HPI. ROS Other: All systems not noted in ROS Statement are negative. Past Medical History Past Medical History: Diabetes Mellitus, Hyperlipidemia, Hypertension History of Any Multi-Drug Resistant Organisms: None Reported Past Surgical History: Orthopedic Surgery, Tonsillectomy Additional Past Surgical History / Comment(s): rt wrist, right hip arthroplasty anterior approach Past Anesthesia/Blood Transfusion Reactions: No Reported Reaction Past Psychological History: No Psychological Hx Reported Past Alcohol Use History: Rare Past Drug Use History: None Reported - Past Family History Father Additional Family Medical History / Comment(s): Father at age 66 from a brain tumor. Mother Family Medical History: Dementia Additional Family Medical History / Comment(s): Mother at age 72 from Alzheimer's. Brother(s) Additional Family Medical History / Comment(s): Patient has 3 brothers with no major medical problems. Patient does not have any sisters. General Exam Limitations: no limitations General appearance: alert, in no apparent distress Head exam: Present: atraumatic, normocephalic, normal inspection Eye exam: Present: normal appearance, PERRL, EOMI. Absent: scleral icterus, conjunctival injection, periorbital swelling ENT exam: Present: normal exam, mucous membranes moist Neck exam: Present: normal inspection. Absent: tenderness, meningismus, lymphadenopathy Respiratory exam: Present: normal lung sounds bilaterally. Absent: respiratory distress, wheezes, rales, rhonchi, stridor Cardiovascular Exam: Present: regular rate, normal rhythm, normal heart sounds. Absent: systolic murmur, diastolic murmur, rubs, gallop, clicks GI/Abdominal exam: Present: soft, distended, tenderness, normal bowel sounds. Absent: guarding, rebound, rigid Course Vital Signs 03/14/22 03/14/22 06:48 07:34 Temperature 98 F Pulse Rate 98 91 Respiratory 16 18 Rate Blood Pressure 167/103 130/78 O2 Sat by Pulse 98 97 Oximetry Medical Decision Making - Medical Decision Making CT shows evidence of possible mass, gastric L obstruction, dilated stomach. I did contact Dr. Workman who reviewed the CT request NG tube patient will be admitted, observed and plan EGD. I did discuss the case also Dr. Gorman who accepts admission - Lab Data Result diagrams: 03/14/22 07:16 03/14/22 07:16 Lab Results 03/14/22 03/14/22 03/14/22 Range/Units 07:16 07:16 07:16 WBC 11.1 H (3.8-10.6) k/uL RBC 5.94 H (4.30-5.90) m/uL Hgb 17.4 (13.0-17.5) gm/dL Hct 51.3 (39.0-53.0) % MCV 86.4 (80.0-100.0) fL MCH 29.3 (25.0-35.0) pg MCHC 33.9 (31.0-37.0) g/dL RDW 14.0 (11.5-15.5) % Plt Count 241 (150-450) k/uL MPV 8.3 Neutrophils % 86 % Lymphocytes % 9 % Monocytes % 4 % Eosinophils % 0 % Basophils % 0 % Neutrophils # 9.5 H (1.3-7.7) k/uL Lymphocytes # 1.0 (1.0-4.8) k/uL Monocytes # 0.4 (0-1.0) k/uL Eosinophils # 0.0 (0-0.7) k/uL Basophils # 0.0 (0-0.2) k/uL Sodium 138 (137-145) mmol/L Potassium 4.8 (3.5-5.1) mmol/L Chloride 101 (98-107) mmol/L Carbon Dioxide 23 (22-30) mmol/L Anion Gap 14 mmol/L BUN 22 H (9-20) mg/dL Creatinine 1.10 (0.66-1.25) mg/dL Est GFR (CKD-EPI)AfAm 85 (>60 ml/min/1.73 sqM) Est GFR (CKD-EPI)NonAf 74 (>60 ml/min/1.73 sqM) Glucose 193 H (74-99) mg/dL Plasma Lactic Acid William (0.7-2.0) mmol/L Calcium 9.4 (8.4-10.2) mg/dL Total Bilirubin 0.8 (0.2-1.3) mg/dL AST 26 (17-59) U/L ALT 15 (4-49) U/L Alkaline Phosphatase 57 (38-126) U/L Total Protein 7.2 (6.3-8.2) g/dL Albumin 4.3 (3.5-5.0) g/dL Amylase 74 (30-110) U/L Lipase 116 (23-300) U/L Urine Color Yellow Urine Appearance Clear (Clear) Urine pH 5.5 (5.0-8.0) Ur Specific [place] 1.034 (1.001-1.035) Urine Protein Trace H (Negative) Urine Glucose (UA) 1+ H (Negative) Urine Ketones Trace H (Negative) Urine Blood Negative (Negative) Urine Nitrite Negative (Negative) Urine Bilirubin Negative (Negative) Urine Urobilinogen <2.0 (<2.0) mg/dL Ur Leukocyte Esterase Negative (Negative) 03/14/22 Range/Units 07:16 WBC (3.8-10.6) k/uL RBC (4.30-5.90) m/uL Hgb (13.0-17.5) gm/dL Hct (39.0-53.0) % MCV (80.0-100.0) fL MCH (25.0-35.0) pg MCHC (31.0-37.0) g/dL RDW (11.5-15.5) % Plt Count (150-450) k/uL MPV Neutrophils % % Lymphocytes % % Monocytes % % Eosinophils % % Basophils % % Neutrophils # (1.3-7.7) k/uL Lymphocytes # (1.0-4.8) k/uL Monocytes # (0-1.0) k/uL Eosinophils # (0-0.7) k/uL Basophils # (0-0.2) k/uL Sodium (137-145) mmol/L Potassium (3.5-5.1) mmol/L Chloride (98-107) mmol/L Carbon Dioxide (22-30) mmol/L Anion Gap mmol/L BUN (9-20) mg/dL Creatinine (0.66-1.25) mg/dL Est GFR (CKD-EPI)AfAm (>60 ml/min/1.73 sqM) Est GFR (CKD-EPI)NonAf (>60 ml/min/1.73 sqM) Glucose (74-99) mg/dL Plasma Lactic Acid William 2.4 H* (0.7-2.0) mmol/L Calcium (8.4-10.2) mg/dL Total Bilirubin (0.2-1.3) mg/dL AST (17-59) U/L ALT (4-49) U/L Alkaline Phosphatase (38-126) U/L Total Protein (6.3-8.2) g/dL Albumin (3.5-5.0) g/dL Amylase (30-110) U/L Lipase (23-300) U/L Urine Color Urine Appearance (Clear) Urine pH (5.0-8.0) Ur Specific [place] (1.001-1.035) Urine Protein (Negative) Urine Glucose (UA) (Negative) Urine Ketones (Negative) Urine Blood (Negative) Urine Nitrite (Negative) Urine Bilirubin (Negative) Urine Urobilinogen (<2.0) mg/dL Ur Leukocyte Esterase (Negative) Disposition Clinical Impression: Gastric out let obstruction, Abdominal pain, Gastritis Disposition: ADMITTED IP TO THIS HOSP Condition: Fair Referrals: Nicola Ortiz MD [Primary Care Provider] - 1-2 days
[2022-03-14] MEDS ORDERED: LORazepam 2 MG/ML INJ IV STA (09:35)
[2022-03-14] MEDS: SODIUM CHLORIDE 0.9% 1,000 ML IV SCH ×2 (09:38→22:32)
[2022-03-14] MEDS: PANTOPRAZOLE 40 MG/10 ML VIAL IV SCH (09:39)
[2022-03-14] MEDS ORDERED: HYDROcodone/APAP 5-325MG 1 EACH TAB PO PRN (10:38)
--- NOTE | 2022-03-14 11:02 | XR ---
EXAMINATION TYPE: XR chest 1V DATE OF EXAM: 03/14/2022 HISTORY: Shortness of breath. COMPARISON: 03/01/2018 TECHNIQUE: Single view of the chest is submitted. FINDINGS: Demonstrated are scattered senescent parenchymal change. NG tube is seen coursing into the stomach. There is no evidence for focal infiltrate. The heart is stable. Hilar and mediastinal structures are within normal limits. Degenerative changes are seen of the dorsal spine. IMPRESSION: 1. Chronic changes without evidence for acute pulmonary disease.
[2022-03-14 11:47] LABS: Glucose,Whole Blood 197 mg/dL (75-99)
[2022-03-14] MEDS: HYDROmorphone 0.5 MG/0.5 ML SYRINGE IVP PRN ×2 (16:14→21:22)
[2022-03-14 16:38] LABS: Glucose,Whole Blood 145 mg/dL (75-99)
--- NOTE | 2022-03-14 19:44 | P.HPIM ---
History of Present Illness H&P Date: 03/14/22 HISTORY OF PRESENT ILLNESS 56-year-old male one half or office patient with past medical history of hypertension, hyperlipidemia, chronic pain syndrome and type 2 diabetes who also had history of severe arthritis post right total hip arthroplasty back in 2019. Patient has been doing well otherwise but developed to have significant abdominal pain and discomfort started overnight he felt extremely nausea and vomiting no bowel movement last 24 hours his symptoms become unbearable and much worse ended up coming to the emergency department this morning where was seen and evaluated with the severity of his abdominal pain CAT scan of the abdomen and pelvis was performed and it shows gastric valve patient noted with wall thickening suggestive of gastric outlet syndrome with the possibility of mass cannot be excluded direct visualization is recommended. Patient lab value showed mildly elevated lactic acid originally with mildly elevated sugar normal urine normal lipase and amylase kidney function is marginal with GFR still running quite normal white blood cell was 11,000. With above symptoms patient was recommended to have an NG tube in, consult general surgery patient be hospitalized for gastric outlet syndrome will be needing to go for an EGD and repeat CAT scan in the next 48 hours. REVIEW OF SYSTEMS Constitutional: No fever, no chills, no night sweats. No weight change. No weakness, fatigue or lethargy. No daytime sleepiness. EENT: No headache. No blurred vision or double vision, no loss of vision. No loss of Hearing, no ringing in the ears, no dizziness. No nasal drainage or congestion. No epistaxis. No sore throat. Lungs: No shortness of breath, cough, no sputum production. No wheezing. Cardiovascular: No chest pain, no lower extremity edema. No palpitations. No paroxysmal nocturnal dyspnea. No orthopnea. No lightheadedness or dizziness. No syncopal episodes. Abdominal: significant abdominal pain with nausea and vomiting no diarrhea constipation no bloody stools or tarry stools significant lock of appetite this point. Genitourinary: No dysuria, increased frequency, urgency. No urinary retention. Musculoskeletal: No myalgias. No muscle weakness, no gait dysfunction, no frequent falls. No back pain. No neck pain. Integumentary: No wounds, no lesions. No rash or pruritus. No unusual bruisi ng. No change in hair or nails. Neurologic: No aphasia. No facial droop. No change in mentation. No head injury. No headache. No paralysis. No paresthesia. Psychiatric: No depression. No anxiety. No mood swings. Endocrine: No abnormal blood sugars. No weight change. No excessive sweating or thirst. No cold intolerance. SOCIAL HISTORY a single with a significant other, patient does not smoke, no current use, no drug use, does not use any marijuana, no CPAP does not walk with a walker or cane. FAMILY HISTORY he does not have any children, patient has 3 siblings with no major medical problem, both parents dying from brain tumor at age 66 for his father and 72 for his mom. His father most likely was metastasis. PHYSICAL EXAMINATION Gen: This is well-developed slightly bit restless does not look in any r espiratory distress. HEENT: Head is atraumatic, normocephalic. Pupils equal, round. Sclerae is anict griffin. NECK: Supple. No JVD. No lymphadenopathy. No thyromegaly. LUNGS: Clear to auscultation. No wheezes or rhonchi. No intercostal retractions. HEART: Regular rate and rhythm. No murmur. ABDOMEN: distended soft hyper bowel sounds significant pain and discomfort in the epigastric area and right upper quadrant area not able to feel any masses this point. EXTREMITIES: No pedal edema. No calf tenderness. NEUROLOGICAL: Patient is awake, alert and oriented x3. Cranial nerves 2 through 12 are grossly intact. ASSESSMENT AND PLAN 1.severe abdominal pain: Sign and symptom of gastric outlet syndrome with possible gastric mass, patient be admitted, continue pain management, NG tube and hydration. 2 gastric outlet syndrome: Not clear etiology, NG tube will be placed at this point patient will require to go for an EGD continue to watch for any worsening symptom at this point. 3 history of type 2 diabetes: Was on metformin, will hold medication at this point Accu-Chek with sliding scales coverage will be done. 4 gastroparesis: Most likely from diabetes, patient might benefit from being on Reglan if the results of this testing is negative for any blockage from tumor growth or any abnormality. 5 hypertension: Remain on lisinopril 10 mg a day along with atenolol 50 mg daily. 6 hyperlipidemia: Remain on atorvastatin 10 mg a day. 7 BPH: Watch for any urinary retention. 8 GI prophylaxis: Patient be on pantoprazole. 9 DVT prophylaxis: Patient will be on heparin subcutaneous.. Patient will be admitted to the hospital for a minimum of 2 night stay. Past Medical History Past Medical History: Diabetes Mellitus, Hyperlipidemia, Hypertension History of Any Multi-Drug Resistant Organisms: None Reported Past Surgical History: Orthopedic Surgery, Tonsillectomy Additional Past Surgical History / Comment(s): rt wrist, right hip arthroplasty anterior approach Past Anesthesia/Blood Transfusion Reactions: No Reported Reaction Past Psychological History: No Psychological Hx Reported Past Alcohol Use History: Rare Past Drug Use History: None Reported - Past Family History Father Additional Family Medical History / Comment(s): Father at age 66 from a brain tumor. Mother Family Medical History: Dementia Additional Family Medical History / Comment(s): Mother at age 72 from Alzheimer's. Brother(s) Additional Family Medical History / Comment(s): Patient has 3 brothers with no major medical problems. Patient does not have any sisters. Medications and Allergies Home Medications Medication Instructions Recorded Confirmed Type atenoloL [Tenormin] 50 mg PO DAILY 03/01/18 03/14/22 History metFORMIN HCL [Glucophage] 500 mg PO BID #60 tab 03/03/18 03/14/22 Rx Atorvastatin [Lipitor] 10 mg PO HS 10/24/19 03/14/22 History lisinopriL [Zestril] 10 mg PO DAILY 10/24/19 03/14/22 History Allergies Allergy/AdvReac Type Severity Reaction Status Date / Time No Known Allergies Allergy Verified 03/14/22 11:13 Physical Exam Vitals: Vital Signs Temp Pulse Resp BP Pulse Ox 03/14/22 07:34 91 18 130/78 97 03/14/22 06:48 98 F 98 16 167/103 98 Intake and Output 03/13/22 03/14/22 03/14/22 22:59 06:59 14:59 Other: Weight 79.379 kg Results CBC & Chem 7: 03/14/22 07:16 03/14/22 07:16 Labs: Abnormal Lab Results - Last 24 Hours (Table) 03/14/22 03/14/22 03/14/22 Range/Units 07:16 07:16 07:16 WBC 11.1 H (3.8-10.6) k/uL RBC 5.94 H (4.30-5.90) m/uL Neutrophils # 9.5 H (1.3-7.7) k/uL BUN 22 H (9-20) mg/dL Glucose 193 H (74-99) mg/dL Plasma Lactic Acid William (0.7-2.0) mmol/L Urine Protein Trace H (Negative) Urine Glucose (UA) 1+ H (Negative) Urine Ketones Trace H (Negative) 03/14/22 Range/Units 07:16 WBC (3.8-10.6) k/uL RBC (4.30-5.90) m/uL Neutrophils # (1.3-7.7) k/uL BUN (9-20) mg/dL Glucose (74-99) mg/dL Plasma Lactic Acid William 2.4 H* (0.7-2.0) mmol/L Urine Protein (Negative) Urine Glucose (UA) (Negative) Urine Ketones (Negative)
[2022-03-14] MEDS: lisinopriL 10 MG TAB PO SCH (20:24)
[2022-03-14] MEDS: HEPARIN SODIUM,PORCINE/PF 5,000 UNIT/0.5 ML SYRINGE SQ SCH (20:24)
[2022-03-14 20:44] LABS: Glucose,Whole Blood 148 mg/dL (75-99)
[2022-03-14] MEDS ORDERED: ATORVASTATIN 10 MG TAB PO SCH (21:00)
--- NOTE | 2022-03-14 23:31 | XR ---
EXAMINATION TYPE: XR chest 1V portable DATE OF EXAM: 03/14/2022 COMPARISON: Today HISTORY: Check tube placement TECHNIQUE: Single view FINDINGS: There is normal heart and mediastinum. Lungs are clear of consolidation. No heart failure. There is nasogastric tube and the tip is overlying the lateral body of the stomach. IMPRESSION: NG tube is in the stomach and not significantly different than last exam. No cardiopulmon luann disease.
[2022-03-15] MEDS: HYDROmorphone 0.5 MG/0.5 ML SYRINGE IVP PRN ×5 (03:17→21:26)
[2022-03-15 07:04] LABS: Glucose,Whole Blood 108 mg/dL (75-99)
[2022-03-15] MEDS: INSULIN ASPART (NovoLOG) 100 UNIT/ML VIAL SQ SCH ×4 (07:41→20:57)
[2022-03-15] MEDS ORDERED: BENZOCAINE/MENTHOL LOZENG 1 EACH LOZENGE MUCOUS MEM PRN (08:00)
[2022-03-15] MEDS: PANTOPRAZOLE 40 MG/10 ML VIAL IV SCH (08:33)
[2022-03-15] MEDS: atenoloL 50 MG TAB PO SCH (08:36)
[2022-03-15] MEDS: HEPARIN SODIUM,PORCINE/PF 5,000 UNIT/0.5 ML SYRINGE SQ SCH ×2 (08:37→21:27)
--- NOTE | 2022-03-15 08:57 | P.GSCN ---
History of Present Illness Consult date: 03/15/22 Reason for Consult: Abdominal pain History of present illness: 56-year-old male came to the hospital with complaints of upper abdominal pain an d fullness. Patient says he had episodes of vomiting at home. Had been having normal bowel function. No history of known ulcer disease. Patient is diabetic for the last few years not on insulin. No previous abdominal surgeries. No previous upper endoscopies. Patient had a CAT scan performed showing marked distention of the stomach with possible mass or obstruction at the pylorus. Nasogastric tube was placed. I cannot find anywhere proper documentation about the amount that came out initially after insertion. Patient is unsure. Review of Systems The patient denies any acute changes in vision or hearing, no dysphagia or odynophagia, no chest pain or shortness of breath, no dysuria or hematuria, no headache, no runny nose, no rectal bleeding or melena, no unexplained weight loss Past Medical History Past Medical History: Diabetes Mellitus, Hyperlipidemia, Hypertension History of Any Multi-Drug Resistant Organisms: None Reported Past Surgical History: Orthopedic Surgery, Tonsillectomy Additional Past Surgical History / Comment(s): rt wrist, right hip arthroplasty anterior approach Past Anesthesia/Blood Transfusion Reactions: No Reported Reaction Past Psychological History: No Psychological Hx Reported Past Alcohol Use History: Rare Past Drug Use History: None Reported - Past Family History Father Additional Family Medical History / Comment(s): Father at age 66 from a brain tumor. Mother Family Medical History: Dementia Additional Family Medical History / Comment(s): Mother at age 72 from Alzheimer's. Brother(s) Additional Family Medical History / Comment(s): Patient has 3 brothers with no major medical problems. Patient does not have any sisters. Medications and Allergies Home Medications Medication Instructions Recorded Confirmed Type atenoloL [Tenormin] 50 mg PO DAILY 03/01/18 03/14/22 History metFORMIN HCL [Glucophage] 500 mg PO BID #60 tab 03/03/18 03/14/22 Rx Atorvastatin [Lipitor] 10 mg PO HS 10/24/19 03/14/22 History lisinopriL [Zestril] 10 mg PO DAILY 10/24/19 03/14/22 History Allergies Allergy/AdvReac Type Severity Reaction Status Date / Time No Known Allergies Allergy Verified 03/14/22 11:13 Surgical - Exam Vital Signs Temp Pulse Resp BP Pulse Ox 98 F 98 16 167/103 98 03/14/22 06:48 03/14/22 06:48 03/14/22 06:48 03/14/22 06:48 03/14/22 06:48 Physical exam: General: Well-developed, well-nourished HEENT: Normocephalic, sclerae nonicteric Abdomen: Mild epigastric tenderness, nondistended Extremities: No edema Neuro: Alert and oriented Results - Labs 03/14/22 07:16 03/14/22 07:16 Abnormal Lab Results - Last 24 Hours (Table) 03/14/22 03/14/22 03/14/22 Range/Units 11:22 11:40 16:36 POC Glucose (mg/dL) 197 H 145 H (75-99) mg/dL Plasma Lactic Acid William 2.3 H* (0.7-2.0) mmol/L 03/14/22 03/15/22 Range/Units 20:43 07:03 POC Glucose (mg/dL) 148 H 108 H (75-99) mg/dL Plasma Lactic Acid William (0.7-2.0) mmol/L Assessment and Plan (1) Abdominal pain Narrative/Plan: 56-year-old male with upper abdominal pain and bloating. CAT scan shows possible gastric outlet obstruction. We'll proceed with upper endoscopy tomorrow with possible biopsy possible dilation. Continue antiacids for now. Minimize oral medications at this time. Current Visit: Yes Status: Acute Code(s): R10.9 - UNSPECIFIED ABDOMINAL PAIN SNOMED Code(s): 02357487
[2022-03-15] MEDS ORDERED: PANTOPRAZOLE 40 MG/10 ML VIAL IVP SCH (09:00)
[2022-03-15 11:23] LABS: Glucose,Whole Blood 118 mg/dL (75-99)
[2022-03-15] MEDS: BENZOCAINE SPRAY 1 CAN MUCOUS MEM PRN (11:26)
--- NOTE | 2022-03-15 11:45 | P.PN ---
Subjective Progress Note Date: 03/15/22 HISTORY OF PRESENT ILLNESS 56-year-old male one half or office patient with past medical history of hypertension, hyperlipidemia, chronic pain syndrome and type 2 diabetes who also had history of severe arthritis post right total hip arthroplasty back in 2019. Patient has been doing well otherwise but developed to have significant abdominal pain and discomfort started overnight he felt extremely nausea and vomiting no bowel movement last 24 hours his symptoms become unbearable and much worse ended up coming to the emergency department this morning where was seen and evaluated with the severity of his abdominal pain CAT scan of the abdomen and pelvis was performed and it shows gastric valve patient noted with wall thickening suggestive of gastric outlet syndrome with the possibility of mass cannot be excluded direct visualization is recommended. Patient lab value tyler wed mildly elevated lactic acid originally with mildly elevated sugar normal urine normal lipase and amylase kidney function is marginal with GFR still running quite normal white blood cell was 11,000. With above symptoms patient was recommended to have an NG tube in, consult general surgery patient be hospitalized for gastric outlet syndrome will be needing to go for an EGD and repeat CAT scan in the next 48 hours. 03/15: Patient continue to have an NG tube in, was seen Dr. laboy clinically with with: On his gastric outlet syndrome patient is scheduled for upper gastroscopy tomorrow depending on the result with the side and further management may be's NG tube can come out tomorrow. The meanwhile pain is under control patient is feeling slightly but more comfortable. REVIEW OF SYSTEMS Constitutional: No fever, no chills, no night sweats. No weight change. No weakness, fatigue or lethargy. No daytime sleepiness. EENT: No headache. No blurred vision or double vision, no loss of vision. No loss of Hearing, no ringing in the ears, no dizziness. No nasal drainage or congestion. No epistaxis. No sore throat. Lungs: No shortness of breath, cough, no sputum production. No wheezing. Cardiovascular: No chest pain, no lower extremity edema. No palpitations. No paroxysmal nocturnal dyspnea. No orthopnea. No lightheadedness or dizziness. No syncopal episodes. Abdominal: significant abdominal pain with nausea and vomiting no diarrhea constipation no bloody stools or tarry stools significant lock of appetite this point. Genitourinary: No dysuria, increased frequency, urgency. No urinary retention. Musculoskeletal: No myalgias. No muscle weakness, no gait dysfunction, no frequent falls. No back pain. No neck pain. Integumentary: No wounds, no lesions. No rash or pruritus. No unusual bruising. No change in hair or nails. Neurologic: No aphasia. No facial droop. No change in mentation. No head injury. No headache. No paralysis. No paresthesia. Psychiatric: No depression. No anxiety. No mood swings. Endocrine: No abnormal blood sugars. No weight change. No excessive sweating or thirst. No cold intolerance. PHYSICAL EXAMINATION Gen: This is well-developed slightly bit restless does not look in any respiratory distress. HEENT: Head is atraumatic, normocephalic. Pupils equal, round. Sclerae is ani cteric. NECK: Supple. No JVD. No lymphadenopathy. No thyromegaly. LUNGS: Clear to auscultation. No wheezes or rhonchi. No intercostal retractions. HEART: Regular rate and rhythm. No murmur. ABDOMEN: distended soft hyper bowel sounds significant pain and discomfort in the epigastric area and right upper quadrant area not able to feel any masses this point. EXTREMITIES: No pedal edema. No calf tenderness. NEUROLOGICAL: Patient is awake, alert and oriented x3. Cranial nerves 2 through 12 are grossly intact. ASSESSMENT AND PLAN 1.severe abdominal pain: Sign and symptom of gastric outlet syndrome with possible gastric mass, still seen general surgery will be going for EGD tomorrow. 2 gastric outlet syndrome: Not clear etiology, NG tube will be placed at this po int patient will require to go for an EGD continue to watch for any worsening symptom at this point. 3 history of type 2 diabetes: Was on metformin, will hold medication at this point Accu-Chek with sliding scales coverage will be done. 4 gastroparesis: Most likely from diabetes, patient might benefit from being on Reglan if the results of this testing is negative for any blockage from tumor growth or any abnormality. 5 hypertension: Remain on lisinopril 10 mg a day along with atenolol 50 mg daily. 6 hyperlipidemia: Remain on atorvastatin 10 mg a day. 7 BPH: Watch for any urinary retention. 8 mild high lactic acid: From severe dehydration and gastric outlet syndrome much better so far continue hydration. 9 GI prophylaxis: Continue pantoprazole. CODE STATUS: Full code. Objective - Vital Signs Vital signs: Vital Signs Temp 98.1 F 03/15/22 08:00 Pulse 71 03/15/22 08:00 Resp 16 03/15/22 08:00 BP 113/68 03/15/22 08:00 Pulse Ox 96 03/15/22 08:00 Intake & Output 03/14/22 03/15/22 03/15/22 18:59 06:59 18:59 Output Total 50 Balance -50 Weight 79.379 kg Output: Gastric Drainage 50 Other: Voiding Method Toilet Urinal # Voids 2 - Labs CBC & Chem 7: 03/14/22 07:16 03/14/22 07:16 Labs: Abnormal Lab Results - Last 24 Hours (Table) 03/14/22 03/14/22 03/14/22 Range/Units 11:40 16:36 20:43 POC Glucose (mg/dL) 197 H 145 H 148 H (75-99) mg/dL 03/15/22 03/15/22 Range/Units 07:03 11:21 POC Glucose (mg/dL) 108 H 118 H (75-99) mg/dL
[2022-03-15] MEDS: SODIUM CHLORIDE 0.9% 1,000 ML IV SCH (13:35)
[2022-03-15 16:09] LABS: Glucose,Whole Blood 99 mg/dL (75-99)
[2022-03-15 20:49] LABS: Glucose,Whole Blood 94 mg/dL (75-99)
[2022-03-15] MEDS: lisinopriL 10 MG TAB PO SCH (20:57)
[2022-03-16] MEDS: HYDROmorphone 0.5 MG/0.5 ML SYRINGE IVP PRN ×3 (00:46→13:33)
[2022-03-16] MEDS: BENZOCAINE SPRAY 1 CAN MUCOUS MEM PRN (00:48)
[2022-03-16] MEDS: SODIUM CHLORIDE 0.9% 1,000 ML IV SCH ×2 (00:49→20:43)
[2022-03-16 07:08] LABS: Glucose,Whole Blood 88 mg/dL (75-99)
[2022-03-16 09:52] LABS: African American GFR (CKD) 114.1 (60.0-200.0); Albumin 3.5 g/dL (3.8-4.9); Albumin/Globulin Ratio 2.06 (1.60-3.17); Anion Gap 9.5 mmol/L (10.00-18.00); BUN/Creat Ratio 15.25 Ratio (12.00-20.00); Blood Urea Nitrogen 12.2 mg/dL (9.0-27.0); Calcium 8.5 mg/dL (8.7-10.3); Carbon Dioxide 22.5 mmol/L (20.0-27.5); Globulin 1.7 g/dL (1.6-3.3); Non-African American GFR(CKD) 98.5 (60.0-200.0); Potassium 4.2 mmol/L (3.5-5.5); Total Bilirubin 0.5 mg/dL (0.30-1.20); Total Protein 5.2 g/dL (6.2-8.2)
[2022-03-16 10:03] LABS: HCT 43.3 % (39.6-50.0); HGB 14.2 g/dL (13.0-17.0); MCH 28.6 pg (27.0-32.0); MCHC 32.8 g/dL (32.0-37.0); MCV 87.1 fL (80.0-97.0); Mean Platelet Volume 11.2 fL (9.5-12.2); NRBC Per 100 WBC 0 /100 WBCS (0.0-0.0); Platelet Count 176 X 10*3/uL (140-440); RBC 4.97 X 10*6/uL (4.40-5.60); RDW 13.8 % (11.5-14.5); WBC 8.03 X 10*3/uL (4.50-10.00)
[2022-03-16] MEDS ORDERED: LORazepam 2 MG/ML INJ IV STA (10:03)
--- NOTE | 2022-03-16 10:06 | P.PN ---
Subjective Progress Note Date: 03/16/22 Hospital course: Patient is a very pleasant 56-year-old male with a past medical history of hypertension, hyperlipidemia, gvo-[id number]-rpircmgru diabetes mellitus type 2, and chronic pain. He presented to the hospital on 03/14/22 with a chief complaint of severe abdominal pain, nausea, and vomiting. Patient underwent full evaluation in the emergency department. Chest x-ray was completed and negative for acute cardiopulmonary process. Patient had labs drawn which were unremarkable with the exception of mild leukocytosis with WBC count of 11.1. Urinalysis was negative for blood or infection. CT abdomen and pelvis with contrast revealed gastric dilation noted with wall thickening suggestive in the region of the pylorus concerning for gastric outlet obstruction and difficult to exclude underlying mass. NG tube was placed to intermittent suction and confirmation of placement was obtained via return of gastric contents as well as x-ray. Patient was admitted under internal medicine team and consult was placed to general surgery. Plan is for patient to undergo EGD with Dr. Workman later this afternoon. Physical exam: Patient was seen and fully evaluated at bedside this morning. He appeared to be resting comfortably in bed. He reports full resolution of abdominal pain and vomiting since insertion of NG tube. He does report continued nausea. Patient continues to have mild to moderate amount of dark brown/coffee ground gastric output from NG tube which remains connected to low intermittent suction. Plan is for patient to undergo EGD this afternoon. Patient reports feeling very anxious over procedure and requesting something to help with his anxiety. Order placed for a one-time dose of Ativan at this time. Morning labs reviewed. Leukocytosis resolved with morning WBC of 8.03 and labs otherwise unremarkable. Patient denies passing any flatus or bowel movements at this time. Vital signs reviewed and stable. General: Nontoxic, no distress and appears stated age. Derm: Skin warm and dry, normal coloration for ethnicity. Head: Atraumatic, normocephalic and symmetric. Eyes: EOMs intact, no lid lag, and anicteric sclera Mouth: no lip lesions, mucus membranes moist Cardiovascular: regular rate and rhythm with normal S1S2, no murmur, positive p osterior tibial pulses bilaterally, and cap refill < 2 seconds. Lungs: Respirations even, regular, and unlabored on room air. Lungs CTA bilaterally, no rhonchi, no rales, no wheezing, and no accessory muscle usage. GI/: soft, nontender to palpation, no guarding, no appreciable organomegaly. NG tube remains in place to low intermittent suction. Ext: ROM intact. No gross muscle atrophy, no edema, no contractures Neuro: Speech clear, face symmetrical and CN II-XII grossly intact with no noted focal neuro deficits Psych: Alert and oriented to person, place, time, and situation. Appropriate and pleasant affect. Assessment and Plan of Care: Gastric outlet obstruction Severe abdominal pain Gastroparesis -NG tube remains in place to low intermittent suction. -Gen. surgery following, plans for EGD this afternoon. -Close monitoring of I's and O's. -NPO pending completion of EGD and further recommendations from general surgery. -Continued IV fluid hydration -Symptomatic care and pain management -GI prophylaxis with Protonix. Hypertension -Monitor vital signs and continue daily medication regimen with lisinopril. Rrh-[id number]-[id number] diabetes mellitus type 2 -Hold metformin in place patient on glycemic protocol with NovoLog sliding scale to maintain tight glycemic control throughout hospitalization. Mild lactic acidosis, resolved with IV fluid hydration CODE STATUS: full code DVT prophylaxis: Heparin Discussed with: Patient and RN Anticipated discharge date: Clinical course to determine Anticipated discharge place: Home A total of 36 minutes was spent on the care of this complex patient more than 50% of the time was spent in counseling and care coordination. Elio Garcias NP rendered care for this patient independently, reviewed the findings and plan as documented in the note above. I did not physically speak with or examine the patient on this date. Objective - Vital Signs Vital signs: Vital Signs Temp 97.8 F 03/16/22 07:46 Pulse 94 03/16/22 08:10 Resp 18 03/16/22 08:10 BP 168/76 03/16/22 07:46 Pulse Ox 98 03/16/22 07:46 Intake & Output 03/15/22 03/16/22 03/16/22 18:59 06:59 18:59 Intake Total 0 Output Total 800 Balance -800 Intake: Oral 0 Output: Gastric Drainage 100 Urine 700 Other: Voiding Method Toilet Toilet Toilet Urinal Urinal Urinal - Labs CBC & Chem 7: 03/16/22 04:10 03/16/22 04:10 Labs: Abnormal Lab Results - Last 24 Hours (Table) 03/15/22 03/16/22 Range/Units 11:21 04:10 Anion Gap 9.50 L (10.00-18.00) mmol/L POC Glucose (mg/dL) 118 H (75-99) mg/dL Calcium 8.5 L (8.7-10.3) mg/dL ALT 7 L (10-49) U/L Total Protein 5.2 L (6.2-8.2) g/dL Albumin 3.5 L (3.8-4.9) g/dL
[2022-03-16] MEDS: PANTOPRAZOLE 40 MG/10 ML VIAL IV SCH (10:13)
[2022-03-16] MEDS: INSULIN ASPART (NovoLOG) 100 UNIT/ML VIAL SQ SCH ×4 (10:38→20:43)
[2022-03-16] MEDS: HEPARIN SODIUM,PORCINE/PF 5,000 UNIT/0.5 ML SYRINGE SQ SCH ×2 (10:46→20:42)
[2022-03-16] MEDS: atenoloL 50 MG TAB PO SCH (10:46)
[2022-03-16 10:57] LABS: Glucose,Whole Blood 84 mg/dL (75-99)
[2022-03-16] MEDS ORDERED: SUCCINYLCHOLINE CHLORIDE 100 MG/5 ML SYR IV ONE (16:04)
[2022-03-16] MEDS ORDERED: PROPOFOL 10 MG/ML 20 ML VIAL IV ONE (16:04)
[2022-03-16] MEDS ORDERED: LIDOCAINE 1% INJ 10MG/ML (20 ML MDV) ONE (16:04)
[2022-03-16] MEDS ORDERED: MIDAZOLAM 2 MG/2 ML VIAL ONE (16:04)
[2022-03-16] MEDS ORDERED: fentaNYL (PF) 50 MCG/ML 2 ML AMP ONE (16:04)
[2022-03-16] MEDS ORDERED: IV FLUID CONTINUATION 1,000 ML IV ONE ×2 (16:30)
--- NOTE | 2022-03-16 16:49 | P.PCN ---
Date of Procedure: 03/16/22 Procedure(s) Performed: Preoperative Dx: Gastric distention, possible gastric outlet obstruction Postoperative Dx: Gastritis without evidence of gastric outlet obstruction Procedure: EGD with Bx Anesthesia: Sedation Endoscopist: Dr. Workman Specimens: Prepyloric gastritis, body of stomach Endoscopic Procedure: The patient was on the endoscopy table in the left decubitus position. The Olympus gastroscope was inserted into the oropharynx and passed under direct visualization to the region of the third portion of the duodenum. From that point the scope was slowly withdrawn inspecting all surfaces carefully. There were no neoplastic inflammatory or polypoid lesions throughout the duodenum. The pylorus was widely patent. There was no evidence of outlet obstruction. There was minimal fluid within the stomach. The patient did have evidence of diffuse gastritis it seemed to be most severe in the antrum body and cardia unlikely related to the indwelling gastric tube. The gastric tube had been removed for the procedure. Biopsies of the prepyloric region there was mild gastritis were taken. Biopsies of the body of the stomach where there was more intense and erythematous appearing gastritis. No ulcers were seen. There was no hiatal hernia seen. The esophagus was free of abnormalities. Recommendations: Keep nasogastric tube out. Add Reglan. Begin clear liquid diet.
[2022-03-16 20:22] LABS: Glucose,Whole Blood 128 mg/dL (75-99)
[2022-03-16] MEDS: METOCLOPRAMIDE 5 MG/ML 2 ML VIAL IVP SCH (20:43)
[2022-03-16] MEDS: lisinopriL 10 MG TAB PO SCH (20:43)
[2022-03-17] MEDS: METOCLOPRAMIDE 5 MG/ML 2 ML VIAL IVP SCH ×3 (01:27→13:02)
[2022-03-17] MEDS ORDERED: diphenhydrAMINE 25 MG CAP PO ONE (03:33)
[2022-03-17] MEDS: SODIUM CHLORIDE 0.9% 1,000 ML IV SCH (03:45)
[2022-03-17 06:45] LABS: Glucose,Whole Blood 131 mg/dL (75-99)
[2022-03-17] MEDS: INSULIN ASPART (NovoLOG) 100 UNIT/ML VIAL SQ SCH ×2 (06:51→11:22)
[2022-03-17] MEDS: HEPARIN SODIUM,PORCINE/PF 5,000 UNIT/0.5 ML SYRINGE SQ SCH (09:13)
[2022-03-17] MEDS: atenoloL 50 MG TAB PO SCH (09:13)
[2022-03-17] MEDS: PANTOPRAZOLE 40 MG/10 ML VIAL IV SCH (09:13)
[2022-03-17 11:12] LABS: Glucose,Whole Blood 103 mg/dL (75-99)
--- NOTE | 2022-03-17 12:27 | CDI ---
Documentation Clarification Form Date: 03/17/2022 12:16:58 PM From: Katarina HornerKAYLI dumas, CCDS Admit Date: 03/14/2022 09:32:00 AM Patient Name: Roel Lopez Visit Number: [id number] Discharge Date: ATTENTION: The Clinical Documentation Specialists (CDI) and [facility] Coding Staff appreciate your assistance in clarifying documentation. Please respond to the clarification below the line at the bottom and electronically sign. The CDI & [facility] Coding staff will review the response and follow-up if needed. Please note: Queries are made part of the Legal Health Record. If you have any questions, please contact the author of this message via ITS. Dr. Margaret Salinas: The patient has a documented history of DM Type 2 on Metformin & Gastroparesis. The patient's Glucose was 193 on admission. Additional specificity regarding the diabetes and elevated blood glucose diagnosis is requested. History/Risk Factors per the 03/14 H/P: DM II, Hypertension, Hyperlipidemia, Chronic Pain Syndrome, Severe Arthritis. Clinical Indicators: Presented to the ED on 03/14 with Abdominal pain, Nausea and one episode of vomiting. Patient has occasional reflux and has discomfort to his back. Per the CT Abdomen & Pelvis: Possible mass, Gastric Outlet Obstruction or Dilated stomach. Admit with Gastric Outlet Obstruction, Abdominal Pain, Gastritis. 03/16 EGD with Stomach Biopsy: Gastritis without evidence of gastric outlet obstruction. 03/14 Glucose: 193, 197, 145, 148 03/15 Glucose: 108, 118, 99, 94 03/16 Glucose: 88, 84, 128 03/17 Glucose: 131, 103 Treatment: Hypoglycemia protocol, Insulin sliding scale, NGT, Surgery consult, IV Dilaudid 0.5 mg x3, IV Zofran 4 mg x1, IV Na Cl 2,000 mls @ 999 mls/hr q2H, IV Reglan 10 mg x1, IV Ativan 1 mg x1, IV Protonix 40 mg Daily, IV Na Cl 1,000 mls @ 100 mls/hr q10H Please clarify the type of diabetes, if known: [ ] Diabetes Type 2 [ ] With Hyperglycemia [ ] Without Hyperglycemia [ ] Other, please specify [ ] Unable to Determine (Template Last Revised: January 2021) 03/19 Query response documented in Discharge Summary 03/17, Dr. Salinas: NIDDM type 2 with Hyperglycemia. (CDS: JACK) YVROSE
--- NOTE | 2022-03-17 13:18 | P.PN ---
Subjective Progress Note Date: 03/17/22 CHIEF COMPLAINT: Gastric distention HISTORY OF PRESENT ILLNESS: Patient is status post EGD with biopsy results demonstrated gastritis without evidence of gastric outlet obstruction. Patient denies any abdominal pain or fullness. He denies any nausea or vomiting. He is tolerating clear liquid diet. He has been up and ambulating. He is having bowel movements. He would like to be discharged home. Afebrile. PHYSICAL EXAM: VITAL SIGNS: Reviewed. GENERAL: Well-developed in no acute distress. HEENT: No sclera icterus. Extraocular movements grossly intact. Moist buccal mucosa. Head is atraumatic, normocephalic. ABDOMEN: Soft. Nondistended. Nontender. NEUROLOGIC: Alert and oriented. Cranial nerves II through XII grossly intact. ASSESSMENT: 1. Gastritis 2. Abdominal pain PLAN: -Advance diet to full liquids -Patient can be discharged from surgical standpoint if tolerating full liquid diet. Then would recommend advancing diet as tolerated at home -Continue PPI Physician [facility] note has been reviewed by physician. Signing provider agrees with the documented findings, assessment, and plan of care. I have personally seen and examined the patient, reviewed the [employer] /PAs history, exam and MDM and agree with the assessment and plan as written. Based on total visit time, I have performed more than 50% of the visit. As above: Patient doing well today. Tolerating clear liquids. May advance to full liquids. If tolerates stable for discharge from our point of view. Grad ually advance diet at home. Objective - Vital Signs Vital signs: Vital Signs Temp 97.9 F 03/17/22 07:55 Pulse 90 03/17/22 07:55 Resp 19 03/17/22 07:55 BP 157/79 03/17/22 07:55 Pulse Ox 97 03/17/22 07:55 Intake & Output 03/16/22 03/17/22 03/17/22 18:59 06:59 18:59 Intake Total 100 1200 Balance 100 1200 Intake: IV 100 Intake, IV Titration 1200 Amount Sodium Chloride 0.9% 1, 1200 000 ml @ 100 mls/hr IV . Q10H DERIC Rx#:[id number] Other: Voiding Method Toilet Toilet Toilet Urinal # Voids 2 # Bowel Movements 1 - Labs CBC & Chem 7: 03/16/22 04:10 03/16/22 04:10 Labs: Abnormal Lab Results - Last 24 Hours (Table) 03/16/22 03/17/22 03/17/22 Range/Units 20:19 06:44 11:10 POC Glucose (mg/dL) 128 H 131 H 103 H (75-99) mg/dL
[2022-03-17 15:01] VITALS: BP 166/92; PULSE 69; RESP 18; TEMP 98.6
--- NOTE | 2022-03-17 16:43 | P.DS ---
Providers Date of admission: 03/14/22 09:32 Expected date of discharge: 03/17/22 Attending physician: Angus Gorman Consults: 03/14/22 09:32 Consult Physician Urgent Consulting Provider: Adis Workman Reason/Comments: Gastric outlet obstruction Do you want consulting provider notified?: Already Contacted Primary care physician: Nicola Ortiz MD Hospital Course: Discharge Diagnosis: Acute gastritis without evidence of gastric outlet obstruction Hypertension. Monitor vital signs and continue daily medication regimen with l isinopril. [id number] diabetes mellitus type 2 with hyperglycemia, blood glucose levels improved. Patient to resume home medication regimen with metformin. Mild lactic acidosis, resolved with IV fluid hydration Leukocytosis, resolved Hospital Course: Patient is a very pleasant 56-year-old male with a past medical history of hypertension, hyperlipidemia, zgi-[id number] diabetes mellitus type 2, and chronic pain. He presented to the hospital on 03/14/22 with a chief complaint of severe abdominal pain, nausea, and vomiting. Patient underwent full evaluation in the emergency department. Chest x-ray was completed and negative for acute cardiopulmonary process. Patient had labs drawn which were unremarkable with the exception of mild leukocytosis with WBC count of 11.1. Urinalysis was negative for blood or infection. CT abdomen and pelvis with contrast revealed gastric dilation noted with wall thickening suggestive in the region of the pylorus concerning for gastric outlet obstruction and difficult to exclude underlying mass. NG tube was placed to intermittent suction and confirmation of placement was obtained via return of gastric contents as well as x-ray. Patient was admitted under internal medicine team and consult was placed to general surgery. Patient underwent EGD with Dr. Workman/ which revealed gastritis without evidence of gastric outlet obstruction and stomach biopsy was obtained. NG tube was removed. Patient was advanced from clear liquids to full liquids and continues to tolerate well. He reports full resolution of abdominal pain, nausea, and vomiting. Patient cleared from general surgery recommending outpatient follow-up in our office and continuation of PPI. Patient is medically stable for discharge at this time and showing no signs of acute distress. Patient instructed to advance diet as tolerated and follow-up with his PCP in 1-2 days and with general surgery in 1 week. Patient discharged home with prescription for Protonix 40 mg daily. Physical exam: Vital signs reviewed and stable. General: Nontoxic, no distress and appears stated age. Derm: Skin warm and dry, normal coloration for ethnicity. Head: Atraumatic, normocephalic and symmetric. Eyes: EOMs intact, no lid lag, and anicteric sclera Mouth: no lip lesions, mucus membranes moist Cardiovascular: regular rate and rhythm with normal S1S2, no murmur, positive posterior tibial pulses bilaterally, and cap refill < 2 seconds. Lungs: Respirations even, regular, and unlabored on room air. Lungs CTA bila terally, no rhonchi, no rales, no wheezing, and no accessory muscle usage. GI/: soft, nontender to palpation, no guarding, no appreciable organomegaly. Bowel sounds 4 quadrants. Ext: ROM intact. No gross muscle atrophy, no edema, no contractures Neuro: Speech clear, face symmetrical and CN II-XII grossly intact with no noted focal neuro deficits Psych: Alert and oriented to person, place, time, and situation. Appropriate and pleasant affect. A total of 37 minutes of time were spent preparing this complex discharge summary. Pt was discharged on 03/17/22 at 4:31 PM. Patient Condition at Discharge: Stable Plan - Discharge Summary Discharge Rx Participant: Yes New Discharge Prescriptions: New Pantoprazole [Protonix] 40 mg PO DAILY 30 Days #30 tab Continue atenoloL [Tenormin] 50 mg PO DAILY metFORMIN HCL [Glucophage] 500 mg PO BID #60 tab lisinopriL [Zestril] 10 mg PO DAILY Atorvastatin [Lipitor] 10 mg PO HS Discharge Medication List atenoloL [Tenormin] 50 mg PO DAILY 03/01/18 [History] metFORMIN HCL [Glucophage] 500 mg PO BID #60 tab 03/03/18 [Rx] Atorvastatin [Lipitor] 10 mg PO HS 10/24/19 [History] lisinopriL [Zestril] 10 mg PO DAILY 10/24/19 [History] Pantoprazole [Protonix] 40 mg PO DAILY 30 Days #30 tab 03/17/22 [Rx] Follow up Appointment(s)/Referral(s): Adis Workman MD [Medical Doctor] - 03/25/22 3:45 pm Nicola Ortiz MD [Primary Care Provider] - 03/18/22 11:30 am (With Renetta ) Patient Instructions/Handouts: Helicobacter Pylori (GEN), Diet for Stomach Ulcers and Gastritis (ED), Full Liquid Diet (DC), Upper Endoscopy (DC) Activity/Diet/Wound Care/Special Instructions: Activity: As tolerated. Take breaks as needed. Diet: Heart healthy and carb consistent diet. Avoid salts, or foods with hidden salts such as canned or boxed foods and frozen dinners. Extra salt makes your heart work harder and traps the fluid in your body for longer. Special Instructions: Take all of your medications as directed and remember to keep all of your doctor's appointments and follow-up as needed. Thank you for allowing us to participate in your care, it was truly a pleasure having you for our patient!!! Discharge Disposition: HOME SELF-CARE
== END 2022-03-17 16:56 | disposition home or self-care (01) | DRG 392 ==
LOC: EC 06:45 → 4SSUR 09:32
PROVIDERS: ADMIT Internal Medicine Geriatric Medicine; ATTEND Internal Medicine Geriatric Medicine
PROC: 0DB78ZX Excision of Stomach, Pylorus, Via Natural or Artificial Opening Endoscopic, Diagnostic (ICD-10-PCS; principal; 2022-03-14)
PROC: 0D9770Z Drainage of Stomach, Pylorus with Drainage Device, Via Natural or Artificial Opening (ICD-10-PCS; principal; 2022-03-14)
DX: K29.00 Acute gastritis without bleeding (principal); E87.2 Acidosis; E11.43 Type 2 diabetes mellitus with diabetic autonomic (poly)neuropathy; D72.829 Elevated white blood cell count, unspecified; E11.65 Type 2 diabetes mellitus with hyperglycemia; I10 Essential (primary) hypertension; E78.5 Hyperlipidemia, unspecified; K31.84 Gastroparesis; E86.0 Dehydration; G54.0 Brachial plexus disorders; G89.4 Chronic pain syndrome; K21.9 Gastro-esophageal reflux disease without esophagitis; Z79.82 Long term (current) use of aspirin; Z79.84 Long term (current) use of oral hypoglycemic drugs; Z79.899 Other long term (current) drug therapy; Z82.0 Family history of epilepsy and other diseases of the nervous system; Z96.641 Presence of right artificial hip joint
CPT/HCPCS: 36415; 43239; 71045; 74177; 80053; 81003; 82150; 83605; 83690; 85025; 85027; 88305; 88342; 99285